=== PATIENT | female | born 1945 | race American Indian/Alaskan Native ===

== ENCOUNTER 2017-04-25 11:59 | Inpatient (IN) | payer MEDICARE ==
--- NOTE | 2017-04-25 12:14 | Emergency Department Report ---
Entered by GEORGES ROMERO, acting as scribe for VANDANA JACKSON NP. Stated Complaint: QUYEN Time Seen by Provider: 04/25/17 12:03 - HPI History of Present Illness: Pt is a 71 y.o. female who presents to ED for evaluation of 3-4 day hx of SOB with associated generalized weakness. She denies CP. Pt was recently discharged from [facility] after tx for bacterial infection at left hand (cut finger in late February /early March). She is out of her BP medications. - ROS Review of Systems: Positive for SOB and generalized weakness Positive for wound to left hand Negative for chest pain - Exam Vital Signs: Vital Signs 04/25/17 12:02 Temperature 98.1 F Pulse Rate 109 H Respiratory 22 Rate Blood Pressure 159/117 O2 Sat by Pulse 97 Oximetry Physical Exam: obese female. tachycardic L third finger tip black, finger swollen MSE screening note: Focused history and physical exam performed. Due to findings the following was ordered: Orders: EKG, sepsis workup, labs, left hand x-rays, and a CXR ED Disposition for MSE Condition: Stable This documentation as recorded by the scribe,GEORGES ROMERO,accurately reflects the service I personally performed and the decisions made by MANUEL garland TRACY M , CORA.
[2017-04-25 13:01] LABS: Eosinophils % (Auto) 1.7 % (0.0-4.3); Hematocrit 36.2 % (30.3-42.9); Hemoglobin 11.9 gm/dl (10.1-14.3); Mean Corpuscular HGB Conc 33 % (30-34); Mean Corpuscular Hemoglobin 30 pg (28-32); Mean Corpuscular Volume 90 fl (79-97); Platelet Count 246 K/mm3 (140-440); Red Blood Count 4.01 M/mm3 (3.65-5.03); Red Cell Distribution Width 12.9 % (13.2-15.2); White Blood Count 10.4 K/mm3 (4.5-11.0)
--- NOTE | 2017-04-25 13:09 | XRay Report ---
CHEST 2 VIEWS INDICATION: Fever, sepsis. COMPARISON: 04/07/2017 FINDINGS: Frontal and lateral chest radiographs now demonstrate increased bronchovascular congestion and hazy bibasilar atelectasis/small pleural effusions, left more than right. Grossly stable cardiomediastinal silhouette, though partly obscured. Intact bones. CONCLUSION: New CHF, as described. Thank you for the opportunity to participate in this patient's care.
[2017-04-25 13:12] LABS: INR 1.06 (0.87-1.13)
[2017-04-25 13:13] LABS: Partial Thromboplastin Time 29.8 Sec. (24.2-36.6)
[2017-04-25 13:19] LABS: Albumin 3.1 g/dL (3.9-5); Albumin/Globulin Ratio 0.8 %; BUN/Creatinine Ratio 25.29; Bilirubin,Total 0.4 mg/dL (0.1-1.2); C-Reactive Protein 0.5 mg/dL (0.00-1.30); Calcium 8.3 mg/dL (8.4-10.2); Total Protein 6.8 g/dL (6.3-8.2)
[2017-04-25 13:23] LABS: Erythrocyte Sedimentation Rate 59 mm/Hr (0-20)
--- NOTE | 2017-04-25 13:39 | XRay Report ---
Left hand: Third digit swelling. There is diffuse swelling of the soft tissues of the third digit from the proximal digit to the DIP joint. The very distal soft tissues appear somewhat atrophic dorsally and there is soft tissue gas contiguous to the distal phalanx. There is an apparent ulcer just distal to the PIP joint. The bones on both sides of the PIP joint demonstrate decreased mineralization but no definite destruction. The joint appears preserved. The remainder of the hand is unremarkable for any significant findings. Impression: Findings consistent with extensive soft tissue infection of the third digit with possible infection involving the bones of the PIP joint.
[2017-04-25 13:51] LABS: Bacteria,Urine 1+ /HPF (Negative); Bilirubin,Urine NEG (Negative); Blood,Urine MOD (Negative); Ketones,Urine NEG (Negative); Leukocyte Esterase,Urine TR (Negative); Mucus,Urine FEW /HPF; Nitrite,Urine NEG (Negative); Urobilinogen,Urine < 2.0 mg/dL (<2.0)
[2017-04-25 13:56] LABS: Protein,Urine >500 mg/dL (Negative)
[2017-04-25] MEDS ORDERED: LASIX IV ONE (14:20)
[2017-04-25] MEDS ORDERED: CLEOCIN 600 MG/50 mL 600 MG/50 ML BAG IV ONE (14:20)
[2017-04-25] MEDS ORDERED: BABY ASPIRIN PO ONE (14:21)
--- NOTE | 2017-04-25 14:21 | Emergency Department Report ---
ED General Adult HPI - General Chief complaint: Dyspnea/Respdistress Stated complaint: QUYEN Time Seen by Provider: 04/25/17 12:03 Source: patient, RN notes reviewed, old records reviewed Mode of arrival: Ambulatory Limitations: Physical Limitation - History of Present Illness Initial comments: This is a 71-year-old female. She is previously unknown to me. Patient has a past medical history of hypertension, diabetes, left middle finger abscess, recently admitted to this hospital, received incision and drainage. The patient presents to the ER complaining of cough, wheezing, shortness of breath, unintentional weight gain. No hematemesis or bright red blood per rectum. No chest pain. No fevers. Reports 2-3 pillow orthopnea. Reports unintentional 20 pound weight gain. Incidentally notes that her left middle finger has changed color, and is now black. -: Gradual Location: left, upper extremity Consistency: constant Improves with: rest Worsens with: movement Associated Symptoms: cough, loss of appetite, shortness of breath, weakness - Related Data Previous Rx's Medication Instructions Recorded Last Taken Type Clindamycin [Clindamycin CAP] 300 mg PO Q8H #30 cap 04/13/17 04/25/17 Rx Insulin NPH/Regular [Novolin 70/30] 8 unit SQ BID #1 vial 04/13/17 04/25/17 Rx traMADol [Ultram 50 MG tab] 50 mg PO Q6HR PRN #12 tablet 04/13/17 04/25/17 Rx Allergies Allergy/AdvReac Type Severity Reaction Status Date / Time No Known Allergies Allergy Unverified 04/07/17 12:28 ED Review of Systems ROS: Stated complaint: QUYEN Other details as noted in HPI Constitutional: malaise, weakness Eyes: denies: vision change ENT: denies: epistaxis Respiratory: shortness of breath Cardiovascular: dyspnea on exertion, edema Gastrointestinal: denies: abdominal pain Genitourinary: denies: dysuria Musculoskeletal: arthralgia, myalgia Skin: lesions Neurological: headache ED Past Medical Hx - Past Medical History Previous Medical History?: Yes Hx Hypertension: Yes Hx Diabetes: Yes Additional medical history: Left middle finger bacterial infection - Surgical History Past Surgical History?: No - Social History Smoking Status: Former Smoker Substance Use Type: Prescribed - Medications Home Medications: Home Medications Medication Instructions Recorded Confirmed Last Taken Type Clindamycin [Clindamycin CAP] 300 mg PO Q8H #30 cap 04/13/17 04/25/17 04/25/17 Rx Insulin NPH/Regular [Novolin 70/30] 8 unit SQ BID #1 vial 04/13/17 04/25/1710/11 Rx traMADol [Ultram 50 MG tab] 50 mg PO Q6HR PRN #12 tablet 04/13/17 04/25/1704/25 Rx ED Physical Exam - General Limitations: Physical Limitation General appearance: alert, in no apparent distress - Head Head exam: Present: atraumatic, normocephalic - Eye Eye exam: Present: normal appearance, EOMI. Absent: nystagmus - ENT ENT exam: Present: normal exam, normal orophraynx, mucous membranes moist, normal external ear exam - Neck Neck exam: Present: normal inspection, full ROM - Respiratory Respiratory exam: Present: wheezes, rales, rhonchi. Absent: respiratory distress - Cardiovascular Cardiovascular Exam: Present: regular rate, normal rhythm, normal heart sounds. Absent: bradycardia, tachycardia, irregular rhythm, systolic murmur, diastolic murmur, rubs, gallop - GI/Abdominal GI/Abdominal exam: Present: soft, normal bowel sounds. Absent: distended, tenderness, guarding, rebound, rigid, pulsatile mass - Extremities Exam Extremities exam: Present: tenderness, normal capillary refill, pedal edema, other (there is 2-3+ pitting edema bilateral lower extremity's. There is no palpable cord. There is negative Homans sign. 2+ pulses noted in the bilateral upper and lower extremity. Left middle finger is necrotic, blackened from the mid distal phalanx distal. No capillary refill is appreciated.). Absent: calf tenderness - Back Exam Back exam: Present: normal inspection, full ROM. Absent: tenderness, paraspinal tenderness - Neurological Exam Neurological exam: Present: alert, oriented X3, other (Extraocular movements intact. Tongue midline. No facial droop. Facial sensation intact to light touch in the V1, V2, V3 distribution bilaterally. 5 and 5 strength in 4 extremities.. Sensation is intact to light touch in 4 extremities.). Absent: motor sensory deficit - Psychiatric Psychiatric exam: Present: normal affect, normal mood - Skin Skin exam: Present: warm, dry, intact, normal color. Absent: rash ED Course Vital Signs 04/25/17 04/25/17 04/25/17 12:02 13:21 17:08 Temperature 98.1 F 98.9 F 98.9 F Pulse Rate 109 H 86 96 H Respiratory 22 16 18 Rate Blood Pressure 159/117 Blood Pressure 174/88 166/92 [Left] O2 Sat by Pulse 97 100 100 Oximetry 04/25/17 18:21 Temperature 98.4 F Pulse Rate 88 Respiratory 16 Rate Blood Pressure 159/84 Blood Pressure [Left] O2 Sat by Pulse 100 Oximetry ED Medical Decision Making - Lab Data Result diagrams: 04/25/17 15:13 04/25/17 15:13 Vital Signs 04/25/17 04/25/17 12:02 13:21 Temperature 98.1 F 98.9 F Pulse Rate 109 H 86 Respiratory 22 16 Rate Blood Pressure 159/117 Blood Pressure 174/88 [Left] O2 Sat by Pulse 97 100 Oximetry Labs 04/25/17 04/25/17 04/25/17 12:48 12:48 12:48 WBC 10.4 RBC 4.01 Hgb 11.9 Hct 36.2 MCV 90 MCH 30 MCHC 33 RDW 12.9 L Plt Count 246 Lymph % (Auto) 35.6 H [place] % (Auto) 8.3 H Eos % (Auto) 1.7 Baso % (Auto) 1.0 Lymph # 3.7 [place] # 0.9 H Eos # 0.2 Baso # 0.1 Seg Neutrophils % 53.4 Seg Neutrophils # 5.6 ESR 59 PT 13.7 INR 1.06 APTT 29.8 D-Dimer Sodium Potassium Chloride Carbon Dioxide Anion Gap BUN Creatinine Estimated GFR BUN/Creatinine Ratio Glucose Lactic Acid 1.70 Calcium Total Bilirubin AST ALT Alkaline Phosphatase Troponin T C-Reactive Protein NT-Pro-B Natriuret Pep Total Protein Albumin Albumin/Globulin Ratio Triglycerides Cholesterol LDL Cholesterol Direct HDL Cholesterol Cholesterol/HDL Ratio Urine Color Urine Turbidity Urine pH Ur Specific [place] Urine Protein Urine Glucose (UA) Urine Ketones Urine Blood Urine Nitrite Urine Bilirubin Urine Urobilinogen Ur Leukocyte Esterase Urine WBC (Auto) Urine RBC (Auto) U Epithel Cells (Auto) Urine Bacteria (Auto) Ur Transition Epith Cell Urine Mucus 04/25/17 04/25/17 04/25/17 12:48 13:34 15:13 WBC RBC Hgb Hct MCV MCH MCHC RDW Plt Count Lymph % (Auto) [place] % (Auto) Eos % (Auto) Baso % (Auto) Lymph # [place] # Eos # Baso # Seg Neutrophils % Seg Neutrophils # ESR PT INR APTT D-Dimer Sodium 140 Potassium 5.0 Chloride 101.0 Carbon Dioxide 27 Anion Gap 17 BUN 43 H Creatinine 1.7 H Estimated GFR 36 BUN/Creatinine Ratio 25.29 Glucose 104 H Lactic Acid 1.30 Calcium 8.3 L Total Bilirubin 0.40 AST 31 ALT 38 Alkaline Phosphatase 107 Troponin T 0.036 H C-Reactive Protein 0.50 NT-Pro-B Natriuret Pep 4705 H Total Protein 6.8 Albumin 3.1 L Albumin/Globulin Ratio 0.8 Triglycerides 163 H Cholesterol 176 LDL Cholesterol Direct 102 HDL Cholesterol 42 Cholesterol/HDL Ratio 4.19 Urine Color Yellow Urine Turbidity Clear Urine pH 6.0 Ur Specific [place] 1.012 Urine Protein >500 Urine Glucose (UA) 150 Urine Ketones Neg Urine Blood Mod Urine Nitrite Neg Urine Bilirubin Neg Urine Urobilinogen < 2.0 Ur Leukocyte Esterase Tr Urine WBC (Auto) 10.0 H Urine RBC (Auto) 14.0 U Epithel Cells (Auto) 1.0 Urine Bacteria (Auto) 1+ Ur Transition Epith Cell 1 Urine Mucus Few 04/25/17 04/25/17 04/25/17 15:13 15:13 15:13 WBC 9.6 RBC 4.02 Hgb 12.1 Hct 36.0 MCV 90 MCH 30 MCHC 34 RDW 13.2 Plt Count 254 Lymph % (Auto) 34.9 [place] % (Auto) 9.1 H Eos % (Auto) 1.7 Baso % (Auto) 1.0 Lymph # 3.4 [place] # 0.9 H Eos # 0.2 Baso # 0.1 Seg Neutrophils % 53.3 Seg Neutrophils # 5.1 ESR PT INR APTT D-Dimer 437.74 H Sodium 139 Potassium 4.2 Chloride 97.7 L Carbon Dioxide 26 Anion Gap 20 BUN 41 H Creatinine 1.7 H Estimated GFR 36 BUN/Creatinine Ratio 24.11 Glucose 89 Lactic Acid Calcium 8.4 Total Bilirubin AST ALT Alkaline Phosphatase Troponin T C-Reactive Protein NT-Pro-B Natriuret Pep Total Protein Albumin Albumin/Globulin Ratio Triglycerides Cholesterol LDL Cholesterol Direct HDL Cholesterol Cholesterol/HDL Ratio Urine Color Urine Turbidity Urine pH Ur Specific [place] Urine Protein Urine Glucose (UA) Urine Ketones Urine Blood Urine Nitrite Urine Bilirubin Urine Urobilinogen Ur Leukocyte Esterase Urine WBC (Auto) Urine RBC (Auto) U Epithel Cells (Auto) Urine Bacteria (Auto) Ur Transition Epith Cell Urine Mucus - EKG Data -: EKG Interpreted by Me Rate: tachycardia - EKG Data 04/25/17 15:53 sinus tachycardia, 104 bpm, normal axis, normal intervals, a troponin enlargement, poor R wave progression, not morphologically consistent with STEMI - Radiology Data Radiology results: report reviewed, image reviewed X-ray of the chest demonstrate congestive heart failure. X-ray of the left hand demonstrates soft tissue swelling, probable soft tissue infection, possible osteomyelitis - Medical Decision Making Differential diagnosis: Cardio renal syndrome, congestive heart failure, dry gangrene, osteomyelitis Assessment and plan: 71-year-old female with edema, weight gain, orthopnea, new onset renal insufficiency, clinically new onset congestive heart failure, to be admitted for further evaluation and management. Left upper extremity also demonstrates dry gangrene. Patient will have wound cultures, blood cultures, Critical care attestation.: If time is entered above; I have spent that time in minutes in the direct care of this critically ill patient, excluding procedure time. ED Disposition Clinical Impression: Cardiorenal syndrome, Necrosis of finger Disposition: DC-[id number] OP ADMIT IP TO THIS HOSP Is pt being admited?: Yes Does the pt Need Aspirin: Yes Condition: Good
--- NOTE | 2017-04-25 14:25 | Admit Criteria Form ---
Admission Criteria Documentation: HEART FAILURE Clinical Indications for Admission to Inpatient Care (Place 'X' for any and all applicable criteria): Admission is indicated by 1 or more of the following(1)(2)(3)(4)(5)(6)(7) [ ]I. Hemodynamic instability(9) [ ]II. Severe electrolyte abnormalities requiring inpatient care [ ]III. Cardiac arrhythmias of immediate concern [ ]IV. Precipitating cause for acute decompensation (eg, pneumonia, pulmonary embolism) requires inpatient care [ ]V. Acute cardiac ischemia causing or associated with failure (Also use Angina or Myocardial Infarction as appropriate) [ ]. Pulmonary edema that is very severe (eg, mechanical ventilation needed, imminent or likely, need for 100% oxygen to keep oxygen saturation above 90%) [ ]VII. Massive skin edema (anasarca) with complications (eg tissue breakdown with infection, inability to void due to edema)[A] (15) [X ]VIIl. Inpatient admission required [B]rather than observation care (See Heart Failure: Observation Care as appropriate) because of 1 or more of the following(16)(17): [ ]a) Pulmonary edema that is severe or worsening as indicated by ALL of the following: [ ]1) New need for oxygen therapy to keep oxygen saturation above 90% (or increased FiO2 need from baseline) [ ]2) Has not improved sufficiently with emergency department or observation care IV diuretics or other heart failure treatments[C] [ ]b) Altered mental status that is severe or persistent [ ]c) Increased creatinine (new on laboratory test) with reduction of more than 50% in estimated glomerular filtration rate from baseline. [ ]d) Progressively (ongoing) rising creatinine (known from past laboratory test) with reduction of more than 25% in estimated glomerular filtration rate from baseline [ ]e) Acute renal insufficiency (progressively (ongoing) rising creatinine (known from past laboratory test) with reduction of more than 25% in estimated glomerular filtration rate from baseline. [X ]f) Acute renal failure [ ]g) Acute peripheral ischemia (e.g., examination shows pulseless, cool, mottled, or cyanotic extremity) [ ]h) Oyxgen administration or respiratory treatments have been needed for over 24 hours that are performable only in acute inpatient setting [ ]i) Pulmonary artery catheter monitoring [X ]j) Other condition, treatment or monitoring requiring inpatient admission Extended stay beyond goal length of stay may be needed for(1)(14)(38)(42)(45) [ ]a) Cardiac ischemia, confirmed or suspected as precipitant (1) [ ]b) Cardiogenic shock (2)(46)(47)(48)(49) [ ]c) Acute renal failure [ ]d) Stage IV chronic kidney disease (estimated glomerular filtration rate of less than 30 mL/min/1.73m2 (0.50 mL/sec/1.73m2), and not previously on chronic dialysis [ ]e) Respiratory failure (eg, need for noninvasive or invasive ventilation) ( 50) [ ]f) Concomitant pneumonia or significant electrolyte abnormality (eg, severe hyponatremia) (51) [ ]g) Newly diagnosed (new onset) atrial fibrillation (52)(53) The original [facility] [employer] content created by [facility] [employer] has been revised. The portions of the content which have been revised are identified through the use of italic text or in bold, and [facility] has neither reviewed nor approved the modified material. All other unmodified content is copyright [facility] [employer]. Please see references footnoted in the original [facility] [employer] edition 2017 Admission Criteria Met: Yes
--- NOTE | 2017-04-25 14:31 | History and Physical Report ---
History of Present Illness Chief complaint: my legs keep swelling up and its hard for me to breathe History of present illness: 71 YO Female with HTN, DM, Obesity, L 3rd digit Cellulitis presents to ED for evaluation. Pt states that she has been experiencing leg swelling and shortness of breath for the past week, with worsening symptoms over the past 2 days. Pt acknowledges Orthopnea, PND, as well as 20 lbs unintentional weight gain and feeling bloated. Pt denies fever, chills, palpitations, NVD, Syncope, vertigo, BRBPR, productive cough, or skin rashes. Pt also states that her left middle finger has changed color, and is now black. Past History Past Medical History: diabetes, hypertension, other (obesity) Past Surgical History: Other (I&D of left 3rd finger,) Social history: . denies: smoking, alcohol abuse, prescription drug abuse, IV drug use Family history: diabetes, hypertension Medications and Allergies Allergies Allergy/AdvReac Type Severity Reaction Status Date / Time No Known Allergies Allergy Unverified 04/07/17 12:28 Home Medications Medication Instructions Recorded Confirmed Last Taken Type Clindamycin [Clindamycin CAP] 300 mg PO Q8H #30 cap 04/13/17 04/25/17 04/25/17 Rx Insulin NPH/Regular [Novolin 70/30] 8 unit SQ BID #1 vial 04/13/17 04/25/1710/11 Rx traMADol [Ultram 50 MG tab] 50 mg PO Q6HR PRN #12 tablet 04/13/17 04/25/1704/25 Rx Active Meds: Active Medications Clindamycin HCl (Cleocin 600 Mg/50 Ml) 600 mg in 50 mls @ 100 mls/hr IV ONCE ONE Stop: 04/25/17 14:49 Review of Systems All systems: negative Constitutional: weight gain Ears, nose, mouth and throat: no ear pain Breasts: no swelling Cardiovascular: orthopnea, dyspnea on exertion, paroxysmal nocturnal dyspnea, leg edema, no chest pain Respiratory: shortness of breath, no cough Gastrointestinal: no abdominal pain Genitourinary Female: no urinary frequency Rectal: no pain Musculoskeletal: no neck stiffness Integumentary: no rash Neurological: no paralysis Psychiatric: no anxiety Endocrine: no cold intolerance Hematologic/Lymphatic: no easy bruising Allergic/Immunologic: no urticaria Exam - Constitutional Vitals: Temp Pulse Resp BP Pulse Ox 98.9 F 86 16 174/88 100 04/25/17 13:21 04/25/17 13:21 04/25/17 13:21 04/25/17 13:21 04/25/17 13:21 General appearance: Present: mild distress - EENT Eyes: Present: PERRL ENT: hearing intact, clear oral mucosa - Neck Neck: Present: supple, normal ROM - Respiratory Respiratory: bilateral: diminished - Cardiovascular Heart Sounds: Present: S1 & S2. Absent: rub, click - Extremities Extremities: pulses symmetrical Extremity abnormal: edema Peripheral Pulses: within normal limits - Abdominal General gastrointestinal: Present: soft, non-tender, non-distended, normal bowel sounds Female genitourinary: Present: normal - Integumentary Integumentary: Present: clear, warm, dry - Musculoskeletal Musculoskeletal: gait normal, strength equal bilaterally - Psychiatric Psychiatric: appropriate mood/affect, intact judgment & insight - Neurologic Neurologic: CNII-XII intact, moves all extremities Results - Labs CBC & Chem 7: 04/25/17 15:13 04/25/17 15:13 Labs: Abnormal lab results 04/25/17 04/25/17 04/25/17 Range/Units 12:48 12:48 13:34 RDW 12.9 L (13.2-15.2) % Lymph % (Auto) 35.6 H (13.4-35.0) % Jones % (Auto) 8.3 H (0.0-7.3) % Jones # 0.9 H (0.0-0.8) K/mm3 BUN 43 H (7-17) mg/dL Creatinine 1.7 H (0.7-1.2) mg/dL Glucose 104 H (65-100) mg/dL Calcium 8.3 L (8.4-10.2) mg/dL Troponin T 0.036 H (0.00-0.029) ng/mL NT-Pro-B Natriuret Pep 4705 H (0-900) pg/mL Albumin 3.1 L (3.9-5) g/dL Triglycerides 163 H (2-149) mg/dL Urine WBC (Auto) 10.0 H (0.0-6.0) /HPF Assessment and Plan - Patient Problems (1) CHF (congestive heart failure) Current Visit: Yes Status: Acute Qualifiers: Congestive heart failure type: systolic Congestive heart failure chronicity : C Plan to address problem: CHF Protocol: Fluid restriction, Cardiology consulted, echo, supportive care, monitor uop q shift, (2) Hypertensive urgency Current Visit: Yes Status: Acute Plan to address problem: Monitor bp q shift, resume home medication, Target systolic overnight between 165-180. (3) ARF (acute renal failure) Current Visit: Yes Status: Acute Qualifiers: Acute renal failure type: A Plan to address problem: monitor uop q shift, urine electrolytes, (4) Cellulitis of finger of left hand Current Visit: No Status: Acute Plan to address problem: Ortho consulted, supportive care, (5) DVT prophylaxis Current Visit: Yes Status: Acute
[2017-04-25] MEDS ORDERED: PROVENTIL IH PRN (14:48)
[2017-04-25] MEDS ORDERED: ZOFRAN IV PRN (14:48)
[2017-04-25] MEDS ORDERED: TYLENOL PO PRN (14:48)
[2017-04-25] MEDS ORDERED: SODIUM CHLORIDE FLUSH SYRINGE 10 ML IV PRN (14:52)
[2017-04-25] MEDS ORDERED: ULTRAM PO PRN (14:54)
[2017-04-25 15:24] LABS: Eosinophils % (Auto) 1.7 % (0.0-4.3); Hemoglobin 12.1 gm/dl (10.1-14.3); Mean Corpuscular HGB Conc 34 % (30-34); Mean Corpuscular Hemoglobin 30 pg (28-32); Mean Corpuscular Volume 90 fl (79-97); Platelet Count 254 K/mm3 (140-440); Red Blood Count 4.02 M/mm3 (3.65-5.03); Red Cell Distribution Width 13.2 % (13.2-15.2); White Blood Count 9.6 K/mm3 (4.5-11.0)
[2017-04-25 15:45] LABS: BUN/Creatinine Ratio 24.11; Calcium 8.4 mg/dL (8.4-10.2); Chloride 97.7 mmol/L (98-107); Potassium 4.2 mmol/L (3.6-5.0)
[2017-04-25] MEDS ORDERED: ZOSYN/NS 4.5GM/100ML 4.5 GM/100 ML VIAL IV ONE (15:55)
[2017-04-26] MEDS ORDERED: APRESOLINE IV PRN (01:28)
[2017-04-26] MEDS ORDERED: APRESOLINE IV SCH (02:00)
--- NOTE | 2017-04-26 08:34 | Nuclear Medicine Report ---
LUNG SCAN, VENTILATION AND PERFUSION: History: Dyspnea. Technique: 5mci of Tc99m MAA was infused for the perfusion images. 15mci XE 133 gas was inhaled for the ventilatory images. Correlation is made with a chest x-ray dated 04/25/17 which demonstrated mild CHF. Findings: Inhalation of Xenon gas demonstrates a normal distribution of the activity throughout both lungs. The wash out phases show no focal retention of activity. After injection of Technetium 99m macroaggregated albumin gamma camera imaging of the lungs in multiple projections demonstrates normal pulmonary contours with a homogeneous distribution of activity. No focal areas of perfusion deficiency are identified. IMPRESSION: Low probability for pulmonary embolus.
--- NOTE | 2017-04-26 10:23 | Consultation ---
History of Present Illness Consult date: 04/26/17 Consult reason: congestive heart failure History of present illness: This is a 71yr old woman with multiple medical problems. She reports a remote history of coronary artery disease with PCI >10yrs ago. She also has Diabetes mellitus, Hypertension noncompliant with medications. She came to this hospital with complaints of shortness of breath and coughs over 4 days. She had a systolic blood pressure as high as 178 while in the ED. She denies chest pain. A chest x-ray reports congestive heart failure. A recent echocardiogram reports a normal LV systolic function, EF 50-55%. Lab values shows a proBNP >4700 consistent with CHF with a preserved ejection fraction. Cardiac consultation requested. Noted with necrotic tissue and discoloration of her left third finger. Patient reports she was recently discharged from this hospital after incision and drainage of abscess left third finger. Past History Social history: denies: Family history: diabetes, hypertension Medications and Allergies Allergies Allergy/AdvReac Type Severity Reaction Status Date / Time No Known Allergies Allergy Unverified 04/07/17 12:28 Home Medications Medication Instructions Recorded Confirmed Last Taken Type Clindamycin [Clindamycin CAP] 300 mg PO Q8H #30 cap 04/13/17 04/25/17 04/25/17 Rx Insulin NPH/Regular [Novolin 70/30] 8 unit SQ BID #1 vial 04/13/17 04/25/1710/11 Rx traMADol [Ultram 50 MG tab] 50 mg PO Q6HR PRN #12 tablet 04/13/17 04/25/1704/25 Rx Active Meds: Active Medications Acetaminophen (Tylenol) 650 mg PO Q4H PRN PRN Reason: Pain MILD(1-3)/Fever >100.5/[place] Albuterol (Proventil) 2.5 mg IH Q4HRT PRN PRN Reason: Shortness Of Breath Hydralazine HCl (Apresoline) 10 mg IV Q4H PRN PRN Reason: Hypertension Last Admin: 04/26/17 01:53 Dose: 10 mg Hydrochlorothiazide (Hctz) 12.5 mg PO QDAY [facility] Insulin Human Isoph/Insulin Regular (Novolin 70/30) 8 unit SUB-Q BIDDIAB [facility] Last Admin: 04/26/17 09:32 Dose: Not Given Ondansetron HCl (Zofran) 4 mg IV Q8H PRN PRN Reason: N/V unrelieved by Reglan Sodium Chloride (Sodium Chloride Flush Syringe 10 Ml) 10 ml IV PRN PRN PRN Reason: LINE FLUSH Tramadol HCl (Ultram) 50 mg PO Q6H PRN PRN Reason: Pain Physical Examination Vital Signs Temp Pulse Resp BP Pulse Ox 98.1 F 109 H 22 159/117 97 04/25/17 12:02 04/25/17 12:02 04/25/17 12:02 04/25/17 12:02 04/25/17 12:02 General appearance: no acute distress HEENT: Positive: PERRL Neck: Positive: trachea midline Cardiac: Positive: Reg Rate and Rhythm Neuro: Positive: Grossly Intact Results 04/25/17 15:13 04/25/17 15:13 CBC 04/25/17 Range/Units 15:13 WBC 9.6 (4.5-11.0) K/mm3 RBC 4.02 (3.65-5.03) M/mm3 Hgb 12.1 (10.1-14.3) gm/dl Hct 36.0 (30.3-42.9) % Plt Count 254 (140-440) K/mm3 Lymph # 3.4 (1.2-5.4) K/mm3 [place] # 0.9 H (0.0-0.8) K/mm3 Eos # 0.2 (0.0-0.4) K/mm3 Baso # 0.1 (0.0-0.1) K/mm3 Comprehensive Metabolic Panel 04/25/17 Range/Units 15:13 Sodium 139 (137-145) mmol/L Potassium 4.2 (3.6-5.0) mmol/L Chloride 97.7 L (98-107) mmol/L Carbon Dioxide 26 (22-30) mmol/L BUN 41 H (7-17) mg/dL Creatinine 1.7 H (0.7-1.2) mg/dL Glucose 89 (65-100) mg/dL Calcium 8.4 (8.4-10.2) mg/dL Assessment and Plan CHF, diastolic EF 50-55% on echo 03/2017 Hypertension -uncontrolled Elevated D-dimer low probability for PE on V/Q scan Acute renal failure Diabetes mellitus Dry Gangrene left 3rd finger Hx of CAD per pt
[2017-04-26] MEDS: HCTZ PO SCH (10:37)
[2017-04-26] MEDS: APRESOLINE PO SCH ×3 (12:52→21:08)
[2017-04-26] MEDS: ISORDIL TITRADOSE PO SCH ×3 (12:53→21:09)
[2017-04-26] MEDS: LASIX PO SCH ×2 (12:53→17:21)
--- NOTE | 2017-04-26 14:29 | Anesthesia Consultation ---
Anesthesia Consult and Med Hx Date of service: 04/26/17 - Airway Anesthetic Teeth Evaluation: Poor (missing teeth on right side) ROM Head & Neck: Adequate Mental/Hyoid Distance: Adequate Mallampati Class: Class II Intubation Access Assessment: Probably Good - Pulmonary Exam CTA: Yes - Cardiac Exam Cardiac Exam: RRR - Pre-Operative Health Status ASA Pre-Surgery Classification: ASA3 Proposed Anesthetic Plan: General - Pulmonary Hx Smoking: Yes (quit 30 years ago) Hx Respiratory Symptoms: Yes (history of bronchitis) - Cardiovascular System Hx Hypertension: Yes - Endocrine Hx Non-Insulin Dependent Diabetes: Yes - Other Systems Hx Substance Use: Yes (marijuana "every now and then") - Additional Comments Anesthesia Medical History Comments: CHF with EF 50-55%. Admit note says SOB, PND, orthopnea and leg swelling.
--- NOTE | 2017-04-26 16:28 | Progress Note ---
Assessment and Plan Assessment and plan: Acute on chronic diastolic CHF exacerbation - Patient's previous echo that was done a month ago showed diastolic dysfunction with preserved ejection fraction - Patient is monitored according to CHF protocol NSTEMI - Cardiology consult appreciated, they're going to do MPI tomorrow Necrosis of the left middle finger - Patient was admitted previously and she was monitored for cellulitis, drainage of abscess from the left middle finger was done by orthopedics and discharged. - Currently there is necrosis of the left middle finger which may need amputation and orthopedics consult was placed. - WBC count is within normal limits and patient didn't have any fever and I don' t think she has cellulitis this time - X-ray of the hand is significant for osteomyelitis and ID consult is placed. Diabetes mellitus type 2 -Continue home dose insulin -Sliding scale insulin coverage Acute kidney injury -Likely from cardiorenal syndrome, will follow BMP after managing the heart failure DVT prophylaxis -On heparin Disposition - Continue inpatient care History Interval history: Patient was seen and evaluated this morning, patient denied pain from her finger. Patient denied fever or chills. She is complaining shortness of breath and bilateral leg swelling. Hospitalist Physical - Physical exam Narrative exam: Not in cardiopulmonary distress. The patient appeared well nourished and normally developed. Vital signs as documented. Head exam is unremarkable. No scleral icterus . Neck is without jugular venous distension, thyromegaly, or carotid bruits. Lungs significant for bibasilar rales. Cardiac exam reveals regular rate and Rhythm. First and second heart sounds normal. No murmurs, rubs or gallops. Abdominal exam reveals normal bowel sounds, no masses, no organomegaly and no aortic enlargement. Extremities significant for necrosis of the left middle finger. Bilateral +2 pedal and pretibial edema. 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 No focal weakness. - Constitutional Vitals: Temp Pulse Resp BP Pulse Ox 97.4 F L 94 H 18 167/98 100 04/26/17 12:06 04/26/17 12:06 04/26/17 12:06 04/26/17 12:04/26/17 12:38 General appearance: Present: no acute distress Results - Labs CBC & Chem 7: 04/25/17 15:13 04/25/17 15:13 Labs: Laboratory Last Values WBC 9.6 K/mm3 (4.5-11.0) 04/25/17 15:13 RBC 4.02 M/mm3 (3.65-5.03) 04/25/17 15:13 Hgb 12.1 gm/dl (10.1-14.3) 04/25/17 15:13 Hct 36.0 % (30.3-42.9) 04/25/17 15:13 MCV 90 fl (79-97) 04/25/17 15:13 MCH 30 pg (28-32) 04/25/17 15:13 MCHC 34 % (30-34) 04/25/17 15:13 RDW 13.2 % (13.2-15.2) 04/25/17 15:13 Plt Count 254 K/mm3 (140-440) 04/25/17 15:13 Lymph % (Auto) 34.9 % (13.4-35.0) 04/25/17 15:13 [place] % (Auto) 9.1 % (0.0-7.3) H 04/25/17 15:13 Eos % (Auto) 1.7 % (0.0-4.3) 04/25/17 15:13 Baso % (Auto) 1.0 % (0.0-1.8) 04/25/17 15:13 Lymph # 3.4 K/mm3 (1.2-5.4) 04/25/17 15:13 [place] # 0.9 K/mm3 (0.0-0.8) H 04/25/17 15:13 Eos # 0.2 K/mm3 (0.0-0.4) 04/25/17 15:13 Baso # 0.1 K/mm3 (0.0-0.1) 04/25/17 15:13 Seg Neutrophils % 53.3 % (40.0-70.0) 04/25/17 15:13 Seg Neutrophils # 5.1 K/mm3 (1.8-7.7) 04/25/17 15:13 ESR 59 mm/Hr (0-20) 04/25/17 12:48 PT 13.7 Sec. (12.2-14.9) 04/25/17 12:48 INR 1.06 (0.87-1.13) 04/25/17 12:48 APTT 29.8 Sec. (24.2-36.6) 04/25/17 12:48 D-Dimer 437.74 ng/mlDDU (0-234) H 04/25/17 15:13 Sodium 139 mmol/L (137-145) 04/25/17 15:13 Potassium 4.2 mmol/L (3.6-5.0) 04/25/17 15:13 Chloride 97.7 mmol/L (98-107) L 04/25/17 15:13 Carbon Dioxide 26 mmol/L (22-30) 04/25/17 15:13 Anion Gap 20 mmol/L 04/25/17 15:13 BUN 41 mg/dL (7-17) H 04/25/17 15:13 Creatinine 1.7 mg/dL (0.7-1.2) H 04/25/17 15:13 Estimated GFR 36 ml/min 04/25/17 15:13 BUN/Creatinine Ratio 24.11 % 04/25/17 15:13 Glucose 89 mg/dL (65-100) 04/25/17 15:13 Lactic Acid 1.30 mmol/L (0.7-2.0) 04/25/17 15:13 Calcium 8.4 mg/dL (8.4-10.2) 04/25/17 15:13 Total Bilirubin 0.40 mg/dL (0.1-1.2) 04/25/17 12:48 AST 31 units/L (5-40) 04/25/17 12:48 ALT 38 units/L (7-56) 04/25/17 12:48 Alkaline Phosphatase 107 units/L (35-129) 04/25/17 12:48 Troponin T 0.035 ng/mL (0.00-0.029) H 04/25/17 20:39 C-Reactive Protein 0.50 mg/dL (0.00-1.30) 04/25/17 12:48 NT-Pro-B Natriuret Pep 4705 pg/mL (0-900) H 04/25/17 12:48 Total Protein 6.8 g/dL (6.3-8.2) 04/25/17 12:48 Albumin 3.1 g/dL (3.9-5) L 04/25/17 12:48 Albumin/Globulin Ratio 0.8 % 04/25/17 12:48 Triglycerides 163 mg/dL (2-149) H 04/25/17 12:48 Cholesterol 176 mg/dL (50-199) 04/25/17 12:48 LDL Cholesterol Direct 102 mg/dL (50-130) 04/25/17 12:48 HDL Cholesterol 42 mg/dL (40-59) 04/25/17 12:48 Cholesterol/HDL Ratio 4.19 % 04/25/17 12:48 TSH 1.950 mlU/mL (0.270-4.200) 04/25/17 15:13 Free T4 1.38 ng/dL (0.76-1.46) 04/25/17 15:13 Urine Color Yellow (Yellow) 04/25/17 13:34 Urine Turbidity Clear (Clear) 04/25/17 13:34 Urine pH 6.0 (5.0-7.0) 04/25/17 13:34 Ur Specific [place] 1.012 (1.003-1.030) 04/25/17 13:34 Urine Protein >500 mg/dL (Negative) 04/25/17 13:34 Urine Glucose (UA) 150 mg/dL (Negative) 04/25/17 13:34 Urine Ketones Neg mg/dL (Negative) 04/25/17 13:34 Urine Blood Mod (Negative) 04/25/17 13:34 Urine Nitrite Neg (Negative) 04/25/17 13:34 Urine Bilirubin Neg (Negative) 04/25/17 13:34 Urine Urobilinogen < 2.0 mg/dL (<2.0) 04/25/17 13:34 Ur Leukocyte Esterase Tr (Negative) 04/25/17 13:34 Urine WBC (Auto) 10.0 /HPF (0.0-6.0) H 04/25/17 13:34 Urine RBC (Auto) 14.0 /HPF (0.0-6.0) 04/25/17 13:34 U Epithel Cells (Auto) 1.0 /HPF (0-13.0) 04/25/17 13:34 Urine Bacteria (Auto) 1+ /HPF (Negative) 04/25/17 13:34 Ur Transition Epith Cell 1 /HPF 04/25/17 13:34 Urine Mucus Few /HPF 04/25/17 13:34 Urine Creatinine 76.7 mg/dL (0.1-20.0) H 04/25/17 13:34 Urine Sodium 99 mEq/L 04/25/17 13:34 - Imaging and Cardiology Chest x-ray: image reviewed (significant for CHF) Imaging and Cardiology: X-ray of the left hand Findings consistent with extensive soft tissue infection of the third digit with possible infection involving the bones of the PIP joint.
[2017-04-26] MEDS: NORVASC PO SCH (17:21)
--- NOTE | 2017-04-26 18:28 | Consultation ---
History of Present Illness - HPI Consult date: 04/26/17 Consult reason: other History of present illness: 71 y/o female well known to me from previous admission for abscess which I incised and drained, developed necrosis of fingertip .... Past History Past Medical History: diabetes, hypertension, other (obesity) Past Surgical History: Other (I&D of left 3rd finger,) Social history: denies: Family history: diabetes, hypertension Medications and Allergies Allergies Allergy/AdvReac Type Severity Reaction Status Date / Time No Known Allergies Allergy Unverified 04/07/17 12:28 Home Medications Medication Instructions Recorded Confirmed Last Taken Type Clindamycin [Clindamycin CAP] 300 mg PO Q8H #30 cap 04/13/17 04/25/17 04/25/17 Rx Insulin NPH/Regular [Novolin 70/30] 8 unit SQ BID #1 vial 04/13/17 04/25/1710/11 Rx traMADol [Ultram 50 MG tab] 50 mg PO Q6HR PRN #12 tablet 04/13/17 04/25/1704/25 Rx Active Meds: Active Medications Acetaminophen (Tylenol) 650 mg PO Q4H PRN PRN Reason: Pain MILD(1-3)/Fever >100.5/[place] Albuterol (Proventil) 2.5 mg IH Q4HRT PRN PRN Reason: Shortness Of Breath Amlodipine Besylate (Norvasc) 10 mg PO QDAY [facility] Last Admin: 04/26/17 17:21 Dose: 10 mg Furosemide (Lasix) 40 mg PO 0600,1800 [facility] Last Admin: 04/26/17 17:21 Dose: 40 mg Heparin Sodium (Porcine) (Heparin) 5,000 unit SUB-Q Q8HR [facility] Hydralazine HCl (Apresoline) 10 mg IV Q4H PRN PRN Reason: Hypertension Last Admin: 04/26/17 01:53 Dose: 10 mg Hydralazine HCl (Apresoline) 25 mg PO Q8HR [facility] Last Admin: 04/26/17 14:00 Dose: Not Given Hydrochlorothiazide (Hctz) 12.5 mg PO QDAY [facility] Last Admin: 04/26/17 10:37 Dose: 12.5 mg Insulin Human Isoph/Insulin Regular (Novolin 70/30) 8 unit SUB-Q BIDDIAB [facility] Last Admin: 04/26/17 09:32 Dose: Not Given Isosorbide Dinitrate (Isordil Titradose) 20 mg PO Q8HR [facility] Last Admin: 04/26/17 14:00 Dose: Not Given Ondansetron HCl (Zofran) 4 mg IV Q8H PRN PRN Reason: N/V unrelieved by Reglan Sodium Chloride (Sodium Chloride Flush Syringe 10 Ml) 10 ml IV PRN PRN PRN Reason: LINE FLUSH Tramadol HCl (Ultram) 50 mg PO Q6H PRN PRN Reason: Pain Physical Examination - Physical exam Narrative exam: Dry gangreen left 3rd finger recommend - observation for now since there's no indication of sepsis, i.e..fever,inc white count or drainage....will amputate once wound fully declares
[2017-04-26] MEDS: HEPARIN SUB-Q SCH (21:09)
[2017-04-27 06:04] LABS: Basophils % (Auto) 1.3 % (0.0-1.8); Eosinophils % (Auto) 3.3 % (0.0-4.3); Hematocrit 31.8 % (30.3-42.9); Hemoglobin 10.6 gm/dl (10.1-14.3); Mean Corpuscular HGB Conc 33 % (30-34); Mean Corpuscular Hemoglobin 30 pg (28-32); Mean Corpuscular Volume 89 fl (79-97); Platelet Count 202 K/mm3 (140-440); Red Blood Count 3.57 M/mm3 (3.65-5.03); Red Cell Distribution Width 13.1 % (13.2-15.2); White Blood Count 8.2 K/mm3 (4.5-11.0)
[2017-04-27 06:22] LABS: BUN/Creatinine Ratio 23.88; Calcium 7.9 mg/dL (8.4-10.2); Potassium 4.4 mmol/L (3.6-5.0)
[2017-04-27] MEDS: ISORDIL TITRADOSE PO SCH ×3 (06:39→21:58)
[2017-04-27] MEDS: APRESOLINE PO SCH ×3 (06:39→21:58)
[2017-04-27] MEDS: LASIX PO SCH ×2 (06:40→17:15)
[2017-04-27] MEDS: HEPARIN SUB-Q SCH ×3 (06:40→21:59)
--- NOTE | 2017-04-27 07:46 | Consultation ---
History of Present Illness - Reason for Consult Consult date: 04/27/17 0steomyelitis of the left middle finger Requesting physician: SIMON RITTER - History of Present Illness is a 71-year-old woman with a history of hypertension and obesity who presents with symptoms of congestive heart failure, but is also found to have swelling of the left third finger. She says she accidentally cut her finger with a knife with cutting a watermelon. A left hand xray showed soft tissue swelling of the 3rd finger with possible bony PIP involvement. Wound culture shows a predominance of Gram positive cocci in pairs. She is prescribed Clindamycin. ID consultation is requested for further treatment recommendations. Past History Past Medical History: diabetes, hypertension, other (obesity) Past Surgical History: Other (I&D of left 3rd finger,) Social history: denies: Family history: diabetes, hypertension Medications and Allergies Allergies Allergy/AdvReac Type Severity Reaction Status Date / Time No Known Allergies Allergy Unverified 04/07/17 12:28 Home Medications Medication Instructions Recorded Confirmed Last Taken Type Clindamycin [Clindamycin CAP] 300 mg PO Q8H #30 cap 04/13/17 04/25/17 04/25/17 Rx Insulin NPH/Regular [Novolin 70/30] 8 unit SQ BID #1 vial 04/13/17 04/25/1710/11 Rx traMADol [Ultram 50 MG tab] 50 mg PO Q6HR PRN #12 tablet 04/13/17 04/25/1704/25 Rx Active Meds: Active Medications Acetaminophen (Tylenol) 650 mg PO Q4H PRN PRN Reason: Pain MILD(1-3)/Fever >100.5/[place] Albuterol (Proventil) 2.5 mg IH Q4HRT PRN PRN Reason: Shortness Of Breath Amlodipine Besylate (Norvasc) 10 mg PO QDAY [facility] Last Admin: 04/26/17 17:21 Dose: 10 mg Furosemide (Lasix) 40 mg PO 0600,1800 [facility] Last Admin: 04/27/17 06:40 Dose: 40 mg Heparin Sodium (Porcine) (Heparin) 5,000 unit SUB-Q Q8HR [facility] Last Admin: 04/27/17 06:40 Dose: 5,000 unit Hydralazine HCl (Apresoline) 10 mg IV Q4H PRN PRN Reason: Hypertension Last Admin: 04/26/17 01:53 Dose: 10 mg Hydralazine HCl (Apresoline) 25 mg PO Q8HR [facility] Last Admin: 04/27/17 06:39 Dose: 25 mg Hydrochlorothiazide (Hctz) 12.5 mg PO QDAY [facility] Last Admin: 04/26/17 10:37 Dose: 12.5 mg Insulin Human Isoph/Insulin Regular (Novolin 70/30) 8 unit SUB-Q BIDDIAB [facility] Last Admin: 04/26/17 18:52 Dose: Not Given Isosorbide Dinitrate (Isordil Titradose) 20 mg PO Q8HR [facility] Last Admin: 04/27/17 06:39 Dose: 20 mg Ondansetron HCl (Zofran) 4 mg IV Q8H PRN PRN Reason: N/V unrelieved by Reglan Sodium Chloride (Sodium Chloride Flush Syringe 10 Ml) 10 ml IV PRN PRN PRN Reason: LINE FLUSH Tramadol HCl (Ultram) 50 mg PO Q6H PRN PRN Reason: Pain Review of Systems All systems: negative Constitutional: no fever, no chills Cardiovascular: orthopnea, shortness of breath Gastrointestinal: no nausea, no vomiting, no diarrhea Musculoskeletal: redness of joints (left 3rd finger) Integumentary: darkening of skin (at affected finger), no rash Physical Examination - Constitutional Vitals: Vital Signs Temp Pulse Resp BP Pulse Ox 98.3 F 87 20 148/88 98 04/27/17 06:09 04/27/17 06:39 04/27/17 06:09 04/27/17 06:39 04/27/17 06:09 Temperature -Last 24 Hours Temperature 98.3 F Temperature 98.1 F Temperature 0 F Temperature 97.8 F Temperature 98.8 F Temperature 97.4 F General appearance: Present: no acute distress, well-nourished - Respiratory Respiratory effort: normal Respiratory: bilateral: CTA, negative: rales, rhonchi - Cardiovascular Rhythm: regular Heart Sounds: Present: S1 & S2 - Extremities Extremity abnormal: edema (mild swelling at the left 3rd PIP with distal gangrene of the finger and progressive ischemic changes proximally, no fluctuance, limited sensation) Results - Labs CBC & Chem 7: 04/27/17 04:44 08/03/17 04:44 Labs: Abnormal lab results 04/26/17 04/26/17 04/27/17 Range/Units 17:23 20:42 04:44 RBC 3.57 L (3.65-5.03) M/mm3 RDW 13.1 L (13.2-15.2) % Lymph % (Auto) 42.9 H (13.4-35.0) % [place] % (Auto) 7.8 H (0.0-7.3) % BUN (7-17) mg/dL Creatinine (0.7-1.2) mg/dL Glucose (65-100) mg/dL POC Glucose 263 H 213 H (70-105) Calcium (8.4-10.2) mg/dL 04/27/17 Range/Units 04:44 RBC (3.65-5.03) M/mm3 RDW (13.2-15.2) % Lymph % (Auto) (13.4-35.0) % [place] % (Auto) (0.0-7.3) % BUN 43 H (7-17) mg/dL Creatinine 1.8 H (0.7-1.2) mg/dL Glucose 204 H (65-100) mg/dL POC Glucose (70-105) Calcium 7.9 L (8.4-10.2) mg/dL Microbiology 04/25/17 16:39 Peripheral/Venous Blood Culture - Preliminary NO GROWTH AFTER 24 HOURS 04/25/17 16:39 Peripheral/Venous Blood Culture - Preliminary NO GROWTH AFTER 24 HOURS 04/25/17 15:20 Finger - Left Middle Wound Culture - Preliminary - Imaging and Cardiology Chest x-ray: report reviewed (new CHF) Assessment and Plan - Patient Problems (1) Gangrene of finger Current Visit: Yes Status: Acute Plan to address problem: 1. Surgical intervention is needed rather than systemic antibiotics. 2. If surgery is deferred for a prolonged period, would continue oral Clindamycin pending definitive surgical plan. 3. I will see the patient on an as-needed basis.
[2017-04-27] MEDS: HCTZ PO SCH (09:40)
[2017-04-27] MEDS: NORVASC PO SCH (09:40)
--- NOTE | 2017-04-27 10:03 | Progress Note ---
Assessment and Plan CHF, diastolic EF 50-55% on echo 03/2017 Hypertension Elevated D-dimer low probability for PE on V/Q scan Acute renal failure Diabetes mellitus Necrotic left 3rd finger Recommendations: Diuresis and afterload reduction for heart failure with a preserved ejection fraction. Lexiscan in am. Subjective Date of service: 04/27/17 Interval history: Patient lying in bed in prone position. She denies shortness of breath. Objective Vital Signs Temp Pulse Resp BP Pulse Ox 04/27/17 08:55 98.0 F 95 H 18 124/64 95 04/27/17 08:06 98 04/27/17 06:39 87 148/88 04/27/17 06:09 98.3 F 87 20 148/88 98 04/27/17 05:58 90 04/26/17 23:51 98.1 F 90 19 132/60 96 04/26/17 22:00 97 H 98 04/26/17 21:09 97 H 160/90 04/26/17 21:08 97 H 160/90 04/26/17 20:44 22 04/26/17 19:34 0 F L 0 L 0 L 0/0 0 L 04/26/17 19:30 97.8 F 97 H 21 160/90 98 04/26/17 18:17 98.8 F 115 H 18 181/97 98 04/26/17 12:38 100 04/26/17 12:06 97.4 F L 94 H 18 167/98 97 04/26/17 11:49 92 H - Physical Examination General: No Apparent Distress HEENT: Positive: PERRL Neck: Positive: trachea midline Cardiac: Positive: Reg Rate and Rhythm Lungs: Positive: Decreased Breath Sounds Neuro: Positive: Grossly Intact - Labs and Meds CBC 04/27/17 Range/Units 04:44 WBC 8.2 (4.5-11.0) K/mm3 RBC 3.57 L (3.65-5.03) M/mm3 Hgb 10.6 (10.1-14.3) gm/dl Hct 31.8 (30.3-42.9) % Plt Count 202 (140-440) K/mm3 Lymph # 3.5 (1.2-5.4) K/mm3 [place] # 0.6 (0.0-0.8) K/mm3 Eos # 0.3 (0.0-0.4) K/mm3 Baso # 0.1 (0.0-0.1) K/mm3 Comprehensive Metabolic Panel 04/27/17 Range/Units 04:44 Sodium 138 (137-145) mmol/L Potassium 4.4 (3.6-5.0) mmol/L Chloride 101.0 (98-107) mmol/L Carbon Dioxide 24 (22-30) mmol/L BUN 43 H (7-17) mg/dL Creatinine 1.8 H (0.7-1.2) mg/dL Glucose 204 H (65-100) mg/dL Calcium 7.9 L (8.4-10.2) mg/dL
--- NOTE | 2017-04-27 16:43 | Progress Note ---
Assessment and Plan Assessment and plan: Acute on chronic diastolic CHF exacerbation - Patient's previous echo that was done a month ago showed diastolic dysfunction with preserved ejection fraction - Patient is monitored according to CHF protocol NSTEMI - Cardiology consult appreciated, they're going to do MPI tomorrow Necrosis of the left middle finger - Patient was admitted previously and she was monitored for cellulitis, drainage of abscess from the left middle finger was done by Dr Mcwilliams and discharged. - Currently there is necrosis of the left middle finger and Dr Mcwilliams was consult recommended to do amputation as an O/P - WBC count is within normal limits and patient didn't have any fever and I don' t think she has cellulitis this time - ID was consulted and recommended amputation of the finger and if not done patient can be discharged with clindamycin. Diabetes mellitus type 2 -Continue home dose insulin -Sliding scale insulin coverage Acute kidney injury -Likely from cardiorenal syndrome DVT prophylaxis -On heparin Disposition - Continue inpatient care History Interval history: Patient was seen and evaluated this morning, patient denied pain from her finger. Patient denied fever or chills. SOB leg swelling subsided. Hospitalist Physical - Physical exam Narrative exam: Not in cardiopulmonary distress. The patient appeared well nourished and normally developed. Vital signs as documented. Head exam is unremarkable. No scleral icterus . Neck is without jugular venous distension, thyromegaly, or carotid bruits. Lungs significant for bibasilar rales. Cardiac exam reveals regular rate and Rhythm. First and second heart sounds normal. No murmurs, rubs or gallops. Abdominal exam reveals normal bowel sounds, no masses, no organomegaly and no aortic enlargement. Extremities significant for necrosis of the left middle finger. Edema subsided. DATABASE DESIGNER: Alert and oriented 3. No focal weakness. - Constitutional Vitals: Temp Pulse Resp BP Pulse Ox 98.1 F 87 18 114/64 97 04/27/17 12:22 04/27/17 12:22 04/27/17 12:22 04/27/17 12:22 04/27/17 12:22 General appearance: Present: no acute distress, well-nourished Results - Labs CBC & Chem 7: 04/27/17 04:44 04/27/17 04:44 Labs: Laboratory Last Values WBC 8.2 K/mm3 (4.5-11.0) 04/27/17 04:44 RBC 3.57 M/mm3 (3.65-5.03) L 04/27/17 04:44 Hgb 10.6 gm/dl (10.1-14.3) 04/27/17 04:44 Hct 31.8 % (30.3-42.9) 04/27/17 04:44 MCV 89 fl (79-97) 04/27/17 04:44 MCH 30 pg (28-32) 04/27/17 04:44 MCHC 33 % (30-34) 04/27/17 04:44 RDW 13.1 % (13.2-15.2) L 04/27/17 04:44 Plt Count 202 K/mm3 (140-440) 04/27/17 04:44 Lymph % (Auto) 42.9 % (13.4-35.0) H 04/27/17 04:44 [place] % (Auto) 7.8 % (0.0-7.3) H 04/27/17 04:44 Eos % (Auto) 3.3 % (0.0-4.3) 04/27/17 04:44 Baso % (Auto) 1.3 % (0.0-1.8) 04/27/17 04:44 Lymph # 3.5 K/mm3 (1.2-5.4) 04/27/17 04:44 [place] # 0.6 K/mm3 (0.0-0.8) 04/27/17 04:44 Eos # 0.3 K/mm3 (0.0-0.4) 04/27/17 04:44 Baso # 0.1 K/mm3 (0.0-0.1) 04/27/17 04:44 Seg Neutrophils % 44.7 % (40.0-70.0) 04/27/17 04:44 Seg Neutrophils # 3.7 K/mm3 (1.8-7.7) 04/27/17 04:44 ESR 64 mm/Hr (0-20) 04/26/17 16:51 PT 13.7 Sec. (12.2-14.9) 04/25/17 12:48 INR 1.06 (0.87-1.13) 04/25/17 12:48 APTT 29.8 Sec. (24.2-36.6) 04/25/17 12:48 D-Dimer 437.74 ng/mlDDU (0-234) H 04/25/17 15:13 Sodium 138 mmol/L (137-145) 04/27/17 04:44 Potassium 4.4 mmol/L (3.6-5.0) 04/27/17 04:44 Chloride 101.0 mmol/L (98-107) 04/27/17 04:44 Carbon Dioxide 24 mmol/L (22-30) 04/27/17 04:44 Anion Gap 17 mmol/L 04/27/17 04:44 BUN 43 mg/dL (7-17) H 04/27/17 04:44 Creatinine 1.8 mg/dL (0.7-1.2) H 04/27/17 04:44 Estimated GFR 34 ml/min 04/27/17 04:44 BUN/Creatinine Ratio 23.88 % 04/27/17 04:44 Glucose 204 mg/dL (65-100) H 04/27/17 04:44 POC Glucose 213 (70-105) H 04/26/17 20:42 Lactic Acid 1.30 mmol/L (0.7-2.0) 04/25/17 15:13 Calcium 7.9 mg/dL (8.4-10.2) L 04/27/17 04:44 Total Bilirubin 0.40 mg/dL (0.1-1.2) 04/25/17 12:48 AST 31 units/L (5-40) 04/25/17 12:48 ALT 38 units/L (7-56) 04/25/17 12:48 Alkaline Phosphatase 107 units/L (35-129) 04/25/17 12:48 Troponin T 0.035 ng/mL (0.00-0.029) H 04/25/17 20:39 C-Reactive Protein 0.60 mg/dL (0.00-1.30) 04/26/17 16:51 NT-Pro-B Natriuret Pep 4705 pg/mL (0-900) H 04/25/17 12:48 Total Protein 6.8 g/dL (6.3-8.2) 04/25/17 12:48 Albumin 3.1 g/dL (3.9-5) L 04/25/17 12:48 Albumin/Globulin Ratio 0.8 % 04/25/17 12:48 Triglycerides 163 mg/dL (2-149) H 04/25/17 12:48 Cholesterol 176 mg/dL (50-199) 04/25/17 12:48 LDL Cholesterol Direct 102 mg/dL (50-130) 04/25/17 12:48 HDL Cholesterol 42 mg/dL (40-59) 04/25/17 12:48 Cholesterol/HDL Ratio 4.19 % 04/25/17 12:48 TSH 1.950 mlU/mL (0.270-4.200) 04/25/17 15:13 Free T4 1.38 ng/dL (0.76-1.46) 04/25/17 15:13 Urine Color Yellow (Yellow) 04/25/17 13:34 Urine Turbidity Clear (Clear) 04/25/17 13:34 Urine pH 6.0 (5.0-7.0) 04/25/17 13:34 Ur Specific [place] 1.012 (1.003-1.030) 04/25/17 13:34 Urine Protein >500 mg/dL (Negative) 04/25/17 13:34 Urine Glucose (UA) 150 mg/dL (Negative) 04/25/17 13:34 Urine Ketones Neg mg/dL (Negative) 04/25/17 13:34 Urine Blood Mod (Negative) 04/25/17 13:34 Urine Nitrite Neg (Negative) 04/25/17 13:34 Urine Bilirubin Neg (Negative) 04/25/17 13:34 Urine Urobilinogen < 2.0 mg/dL (<2.0) 04/25/17 13:34 Ur Leukocyte Esterase Tr (Negative) 04/25/17 13:34 Urine WBC (Auto) 10.0 /HPF (0.0-6.0) H 04/25/17 13:34 Urine RBC (Auto) 14.0 /HPF (0.0-6.0) 04/25/17 13:34 U Epithel Cells (Auto) 1.0 /HPF (0-13.0) 04/25/17 13:34 Urine Bacteria (Auto) 1+ /HPF (Negative) 04/25/17 13:34 Ur Transition Epith Cell 1 /HPF 04/25/17 13:34 Urine Mucus Few /HPF 04/25/17 13:34 Urine Creatinine 76.7 mg/dL (0.1-20.0) H 04/25/17 13:34 Urine Sodium 99 mEq/L 04/25/17 13:34
[2017-04-28] MEDS: ISORDIL TITRADOSE PO SCH ×2 (05:43→14:15)
[2017-04-28] MEDS: APRESOLINE PO SCH ×2 (05:43→14:11)
[2017-04-28] MEDS: LASIX PO SCH (05:44)
[2017-04-28] MEDS: HEPARIN SUB-Q SCH ×2 (05:54→14:16)
[2017-04-28 06:00] LABS: BUN/Creatinine Ratio 26.47; Calcium 8.1 mg/dL (8.4-10.2); Chloride 103.6 mmol/L (98-107); Potassium 4.3 mmol/L (3.6-5.0)
[2017-04-28] MEDS ORDERED: LEXISCAN IV ONE ×2 (07:56→08:04)
[2017-04-28] MEDS: HCTZ PO SCH (10:28)
[2017-04-28] MEDS: NORVASC PO SCH (10:28)
--- NOTE | 2017-04-28 10:58 | Progress Note ---
Assessment and Plan Assessment: CHF, diastolic EF 50-55% on echo 03/2017 No ischemia on MPI this admission, fixed mid anteroseptal wall defect Hypertension Elevated D-dimer low probability for PE on V/Q scan Acute renal failure Stabe creatinine Diabetes mellitus Necrotic left 3rd finger Recommendations: Diuresis and afterload reduction for heart failure with a preserved ejection fraction. asa, lipitor No further cardiac work-up is needed May proceed with finger amputation if needed from a cardiac standpoint Subjective Date of service: 04/28/17 Principal diagnosis: CHF, SOB Interval history: Patient has been stable overnight with no events Objective Vital Signs Temp Pulse Resp BP Pulse Ox 04/28/17 10:28 89 132/89 04/28/17 09:00 98.7 F 98 H 20 138/82 100 04/28/17 04:00 98.0 F 93 H 18 120/59 98 04/28/17 00:33 98.4 F 90 18 104/56 97 04/27/17 22:56 94 H 04/27/17 20:26 99 04/27/17 20:00 98.3 F 100 H 18 120/56 98 04/27/17 17:18 98.6 F 98 H 18 125/65 100 04/27/17 12:22 98.1 F 87 18 114/64 97 - Physical Examination General: No Apparent Distress HEENT: Positive: PERRL Neck: Positive: trachea midline Cardiac: Positive: Reg Rate and Rhythm Lungs: Positive: Normal Exam Neuro: Positive: Grossly Intact - Labs and Meds Comprehensive Metabolic Panel 04/28/17 Range/Units 04:50 Sodium 143 (137-145) mmol/L Potassium 4.3 (3.6-5.0) mmol/L Chloride 103.6 (98-107) mmol/L Carbon Dioxide 26 (22-30) mmol/L BUN 45 H (7-17) mg/dL Creatinine 1.7 H (0.7-1.2) mg/dL Glucose 110 H (65-100) mg/dL Calcium 8.1 L (8.4-10.2) mg/dL
[2017-04-28 14:16] VITALS: BP 148/77
--- NOTE | 2017-04-28 14:41 | Treadmill Report ---
INDICATION: Shortness of breath, preoperative cardiac clearance. FINDINGS: There is no scintigraphic evidence of myocardial ischemia. There is evidence of a small fixed mid anteroseptal wall defect comprising 7% on the left ventricular myocardium. The left ventricular cavity is normal in size. There is mild left ventricular systolic dysfunction with an ejection fraction measured at 48%. CONCLUSIONS: 1. No scintigraphic evidence of myocardial ischemia. 2. Small fixed mid anteroseptal wall defect. 3. Mild left ventricular systolic dysfunction with an ejection fraction measured at 48%. 4. Decreased uptake noted on gated imaging in the mid anteroseptal wall. This is a low risk myocardial perfusion scan associated with 1-year cardiovascular mortality of less than 1%. [facility]# [id number] HUBER/JEFFY
--- NOTE | 2017-04-28 14:47 | Discharge Summary ---
Providers - Providers Date of Admission: 04/25/17 14:48 Date of discharge: 04/28/17 Attending physician: SIMON RITTER MD 04/25/17 Consult to Cardiac Rehabilitation [CONS] Routine Reason For Exam: Phase I 04/25/17 14:52 Consult to Cardiology [CONS] Routine Consulting Provider: HUBER BARRETT Reason For Exam: acs 04/26/17 07:36 Consult to Wound/ET Nurse [CONS] Routine Reason For Exam: wound eval 04/26/17 16:21 Consult to Physician [CONS] Routine Consulting Provider: AMA MAYNARD Reason For Exam: [id number] of the left middle finger Place consult to:: ID Notified:: DR. MAYNARD Phone number called:: [phone] Was contact made?: Yes Time called:: 16:48 Comment:: LEFT MESSAGE ON PHONE Primary care physician: [employer] SUPERVISOR Hospitalization Reason for admission: acute diastolic CHF Condition: Good Pertinent studies: MPI negative for ischemia Recent Echo significant for diastolic dysfunction Hand x-ray extensive soft tissue swelling with possible infection of the bones and PIP joint Hospital course: 71 YO Female with HTN, DM, Obesity, L 3rd digit Cellulitis presents to ED for evaluation. Pt states that she has been experiencing leg swelling and shortness of breath for the past week, with worsening symptoms over the past 2 days. Pt acknowledges Orthopnea, PND, as well as 20 lbs unintentional weight gain and feeling bloated. Pt denies fever, chills, palpitations, NVD, Syncope, vertigo, BRBPR, productive cough, or skin rashes. Pt also states that her left middle finger has changed color, and is now black. Patient was admitted to the floor and was managed for acute diastolic heart failure and was managed appropriately and MPI was negative for ischemia. For her necrosis of the necrosis of the left middle finger Dr Mcwilliams was consulted and he said he will do amputation as an O/P with in 5-7days. ID was consulted and recommend to continue with clindamycin until amputation was done. Patient was known to Dr Mcwilliams in her previous admission and he did incision and drainage of the same finger. Disposition: TO HOME OR SELFCARE Time spent for discharge: 31 minutes - Discharge Diagnoses (1) CHF (congestive heart failure) Status: Acute Qualifiers: Congestive heart failure type: diastolic Congestive heart failure chronicity: C (2) Cardiorenal syndrome Status: Acute Qualifiers: Hypertensive chronic kidney disease stage: H Heart failure presence: H (3) Gangrene of finger Status: Acute (4) Hypertensive urgency Status: Acute Core Measure Documentation - Palliative Care Palliative Care/ Comfort Measures: Not Applicable - Core Measures Any of the following diagnoses?: heart failure - Heart Failure Discharge Requirements MAXIMILIANO/ARB for LVSD if EF <40%: Not Applicable Beta sakina at discharge: Yes Exam - Physical Exam Narrative exam: Not in cardiopulmonary distress. The patient appeared well nourished and normally developed. Vital signs as documented. Head exam is unremarkable. No scleral icterus . Neck is without jugular venous distension, thyromegaly, or carotid bruits. Lungs significant for bibasilar rales. Cardiac exam reveals regular rate and Rhythm. First and second heart sounds normal. No murmurs, rubs or gallops. Abdominal exam reveals normal bowel sounds, no masses, no organomegaly and no aortic enlargement. Extremities significant for necrosis of the left middle finger. Edema subsided. MATERIAL HANDLER 1ST SHIFT: Alert and oriented 3. No focal weakness. - Constitutional Vitals: Temp Pulse Resp BP Pulse Ox 98.6 F 98 H 18 148/77 98 04/28/17 12:00 04/28/17 14:15 04/28/17 12:00 04/28/17 14:15 04/28/17 12:00 Plan Activity: no restrictions Weight Bearing Status: Full Weight Bearing Diet: low cholesterol, low salt Follow up with: TORRES WOODWARD MD [Primary Care Provider] - 7 Days AMY MCWILLIAMS MD [Staff Physician] - 7 Days Prescriptions: AtorvaSTATin [Lipitor] 20 mg PO QHS #30 tablet amLODIPine [Norvasc] 10 mg PO QDAY #30 tablet Carvedilol [Coreg] 3.125 mg PO BID #60 tablet Clindamycin [Clindamycin CAP] 300 mg PO Q8H #21 cap Furosemide [Furosemide ORAL LIQ] 40 mg PO QDAY #30 ml hydrALAZINE [Apresoline TAB] 50 mg PO Q8HR #90 tablet Insulin NPH/Regular [NovoLIN 70/30] 8 unit SQ BID #1 vial Isosorbide Dinitrate [Isordil Titradose] 20 mg PO Q8HR #90 tablet Potassium Chloride 20 meq PO QDAY #30 packet traMADol [Ultram 50 MG tab] 50 mg PO Q6HR PRN #12 tablet PRN Reason: Pain
[2017-04-29] MEDS ORDERED: HALFPRIN EC PO SCH (10:00)
== END 2017-04-28 18:11 | disposition home or self-care (01) | DRG 280 ==
LOC: ED 11:59 → 4A 14:48
PROVIDERS: ADMIT Internal Medicine; ATTEND Internal Medicine
DX: I21.4 Non-ST elevation (NSTEMI) myocardial infarction (principal); I50.33 Acute on chronic diastolic (congestive) heart failure; E11.52 Type 2 diabetes mellitus with diabetic peripheral angiopathy with gangrene; N17.9 Acute kidney failure, unspecified; I13.0 Hypertensive heart and chronic kidney disease with heart failure and stage 1 through stage 4 chronic kidney disease, or unspecified chronic kidney disease; I16.0 Hypertensive urgency; Z87.891 Personal history of nicotine dependence; Z79.4 Long term (current) use of insulin; E11.22 Type 2 diabetes mellitus with diabetic chronic kidney disease; N18.9 Chronic kidney disease, unspecified; E66.9 Obesity, unspecified; Z68.35 Body mass index [BMI] 35.0-35.9, adult; Z83.3 Family history of diabetes mellitus; Z82.49 Family history of ischemic heart disease and other diseases of the circulatory system; L03.012 Cellulitis of left finger; I25.10 Atherosclerotic heart disease of native coronary artery without angina pectoris
CPT/HCPCS: 36415; 71020; 78452; 78582; 80048; 80053; 80061; 81001; 82140; 82570; 82962; 83880; 84300; 84439; 84443; 84484; 85025; 85379; 85610; 85652; 85730; 86140; 87040; 87076; 87116; 87186; 93005; 93010; 93017; 94760; 96365; 96367; 96375; A9502; A9540; A9558; J0360; J1644; J1815; J1940; J2543; J2785

== ENCOUNTER 2017-06-15 08:25 | Day surgery (SDC) | payer MEDICARE ==
[~2017-06-15 08:25] MED LIST: NACL 0.9% IR ONE; NEOSPORIN GU IR ONE
--- NOTE | 2017-06-15 10:44 | Anesthesia Consultation ---
Anesthesia Consult and Med Hx Date of service: 06/15/17 - Airway Anesthetic Teeth Evaluation: Good ROM Head & Neck: Adequate Mental/Hyoid Distance: Adequate Mallampati Class: Class II Intubation Access Assessment: Probably Good - Pulmonary Exam CTA: Yes - Cardiac Exam Cardiac Exam: RRR - Pre-Operative Health Status ASA Pre-Surgery Classification: ASA3 Proposed Anesthetic Plan: General - Pulmonary Hx Smoking: Yes (former) Hx Respiratory Symptoms: Yes (history of bronchitis) Hx Sleep Apnea: Yes (No CPAP) - Cardiovascular System Hx Hypertension: Yes - Central Nervous System Hx Psychiatric Problems: No - Endocrine Hx Non-Insulin Dependent Diabetes: Yes - Other Systems Hx Alcohol Use: Yes (occas) Hx Substance Use: Yes (past marijuana use) Hx Cancer: Yes
--- NOTE | 2017-06-15 10:44 | Anesthesia Day of Surgery ---
Anesthesia Day of Surgery - Day of Surgery Patient Examined: Yes Patient H&P Reviewed: Yes Patient is NPO: Yes
[2017-06-15] MEDS ORDERED: PEPCID ONE (10:46)
[2017-06-15] MEDS ORDERED: DIPRIVAN 10 MG/ML IV ONE (10:52)
[2017-06-15] MEDS ORDERED: XYLOCAINE MPF 2% ONE (10:52)
[2017-06-15] MEDS ORDERED: SUBLIMAZE ONE (10:52)
[2017-06-15] MEDS ORDERED: PEPCID PO NR (11:00)
[2017-06-15] MEDS ORDERED: NACL 0.9% 1000 ML 1,000 ML IV SCH (11:00)
[2017-06-15] MEDS ORDERED: ANCEF/STERILE WATER 2 GM/20 ML IV NR (11:00)
[2017-06-15] MEDS ORDERED: VERSED IV NR (11:00)
[2017-06-15] MEDS ORDERED: MARCAINE 0.25% INFILTRATI ONE (11:08)
[2017-06-15] MEDS ORDERED: NACL 0.9% IR ONE (11:17)
[2017-06-15] MEDS ORDERED: NEO SYNEPHRINE/NS Syringe(OR USE) IV ONE (11:30)
[2017-06-15] MEDS ORDERED: ZOFRAN ONE (11:49)
[2017-06-15] MEDS ORDERED: DECADRON ONE (11:49)
--- NOTE | 2017-06-15 12:40 | Post Anesthesia Evaluation ---
- Post Anesthesia Evaluation Patient Participated: Yes Airway Patent: Yes Stable Respiratory Function: Yes Nausea/Vomiting: No Temp > 96.8F: Yes Pain Manageable: Yes Adequeate Hydration: Yes Anesthesia Complications: No Block Receding Appropriately: Not Applicable Patient on Ventilator: No
[2017-06-15 18:31] VITALS: BP 139/73
--- NOTE | 2017-07-16 22:47 | Procedure Note ---
Date of procedure: 06/15/17 Pre-op diagnosis: gangrene left 3rd finger Post-op diagnosis: same Procedure: partial amputation left 3rd finger Procedure The patient brought to the OR and placed on the table supine, the left upper extremity prepped and draped in the usual sterile fashion. A time-out procedure done to identify the patient and the correct operative site. The distal phalanx excised at the DIP joint and given to our scrub nurse for pathologic examination. The skin on the volar surface brought up and attached to dorsal surface by way of interrupted sutures. Routine post op dressing applied and there were no complications noted. Anesthesia: regional Surgeon: AMY MCINTOSH Pathology: list (distal phalanx lt 3rd digit) Condition: stable Disposition: PACU
== END 2017-06-15 14:05 | disposition home or self-care (01) ==
LOC: OR 08:25
PROVIDERS: ATTEND Orthopaedic Surgery
DX: E11.52 Type 2 diabetes mellitus with diabetic peripheral angiopathy with gangrene (principal); M86.10 Other acute osteomyelitis, unspecified site; I10 Essential (primary) hypertension; Z72.89 Other problems related to lifestyle; Z87.898 Personal history of other specified conditions; Z87.891 Personal history of nicotine dependence
CPT/HCPCS: 26236; 36415; 82962; 84132; 88305; 88311; J1100; J2370; J2405; J2704; J3010; J7030; 88302; A4217

== ENCOUNTER 2019-01-13 05:17 | Emergency (ER) | payer OTHER, MEDICARE ==
[2019-01-13 05:25] VITALS: BP 192/77
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
[2019-01-13] MEDS ORDERED: IBUPROFEN PO ONE (09:58)
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
== END 2019-01-13 10:28 | disposition home or self-care (01) ==
LOC: ED 05:17
DX: S13.4XXA Sprain of ligaments of cervical spine, initial encounter (principal); S46.912A Strain of unspecified muscle, fascia and tendon at shoulder and upper arm level, left arm, initial encounter; I10 Essential (primary) hypertension; E11.9 Type 2 diabetes mellitus without complications; G43.909 Migraine, unspecified, not intractable, without status migrainosus; Z95.5 Presence of coronary angioplasty implant and graft; Z79.4 Long term (current) use of insulin; V49.59XA Passenger injured in collision with other motor vehicles in traffic accident, initial encounter; Y93.89 Activity, other specified; Y92.410 Unspecified street and highway as the place of occurrence of the external cause; Y99.8 Other external cause status
CPT/HCPCS: 72040

== ENCOUNTER 2021-02-08 03:12 | Inpatient (IN) | payer MEDICARE ==
[2021-02-08] MEDS ORDERED: FUROSEMIDE 40 MG/4 ML INJ IV ONE (03:17)
[2021-02-08] MEDS ORDERED: NITROGLYCERIN 0.4 MG TAB SUBL SL ONE (03:18)
--- NOTE | 2021-02-08 03:23 | Emergency Department Report ---
ED Shortness of Breath HPI - General Stated Complaint: QUYEN Time Seen by Provider: 02/08/21 03:17 - History of Present Illness Initial Comments: Patient is 75 years old female with history of congestive heart failure, hypertension, diabetes and left below-knee amputation. Patient brought to the emergency room via EMS from home for evaluation of respiratory distress. Patient stated the symptoms started this morning with difficulty in breathing. Patient denied any chest pain, fever or chills. EMS stated that patient initial oxygen saturation was 73% on room air and her blood pressure was 240/150. Patient started on BiPAP by EMS and given Lasix 40 mg IV. Upon arrival to the ER patient stated that she is feeling a little bit better. Patient continued on BiPAP and received another 40 mg of Lasix IV and nitroglycerin 0.4 mg p.o. Complaint: shortness of breath -: Sudden, This morning Severity: severe Known History Of: congestive heart failure, diabetes Associated Symptoms: denies other symptoms Treatments Prior to Arrival: oxygen, NIPPV, diuretics - Related Data Home Medications Medication Instructions Recorded Confirmed Last Taken traMADoL [Ultram] 50 mg PO Q4HR PRN 06/15/17 06/15/17 06/13/17 Previous Rx's Medication Instructions Recorded Last Taken Type AtorvaSTATin 20 mg PO QHS #30 tablet 04/28/17 06/12/17 Rx Furosemide [Furosemide ORAL LIQ] 40 mg PO QDAY #30 ml 04/28/17 06/12/17 Rx Insulin NPH/Regular [NovoLIN 70/30] 8 unit SQ BID #1 vial 04/28/17 06/14/17 22:00 Rx 8 UNITS Isosorbide Dinitrate [Isordil] 20 mg PO Q8HR #90 tablet 04/28/17 06/12/17 Rx Potassium Chloride 20 meq PO QDAY #30 packet 04/28/17 Unknown Rx amLODIPine 10 mg PO QDAY #30 tablet 04/28/17 06/12/17 Rx carvediloL [Coreg] 3.125 mg PO BID #60 tablet 04/28/17 06/15/17 10:30 Rx hydrALAZINE [Apresoline TAB] 50 mg PO Q8HR #90 tablet 04/28/17 06/12/17 Rx HYDROcodone/APAP 5-325 [[place] 1 each PO Q4HR PRN #35 tablet 06/15/17 Unknown Rx 5-325 mg TAB] Acetaminophen [Tylenol Arthritis] 650 mg PO Q6HR PRN #30 tablet.er 07/27/17 Unknown Rx Bacitracin Zinc Oint [Antibiotic 1 applic TP TID #1 oint...g. 07/27/17 Unknown Rx Oint] Ibuprofen [Motrin] 600 mg PO Q8H PRN #30 tablet 07/27/17 Unknown Rx Cyclobenzaprine HCl [Flexeril 5 MG 5 mg PO QHS #10 tab 01/13/19 Unknown Rx TAB] Ibuprofen 600 mg PO Q8H PRN #20 tablet 01/13/19 Unknown Rx Allergies Allergy/AdvReac Type Severity Reaction Status Date / Time No Known Allergies Allergy Unverified 06/14/17 08:11 ED Review of Systems ROS: Stated complaint: QUYEN Other details as noted in HPI Comment: All other systems reviewed and negative Constitutional: denies: chills, fever Respiratory: shortness of breath, SOB with exertion, SOB at rest Cardiovascular: denies: chest pain Gastrointestinal: denies: abdominal pain, nausea, vomiting Neurological: denies: headache, weakness ED Past Medical Hx - Past Medical History Hx Hypertension: Yes Hx Diabetes: Yes Hx Headaches / Migraines: Yes Hx HIV: No Additional medical history: Left middle finger bacterial infection - Surgical History Hx Coronary Stent: Yes (2005) - Social History Smoking Status: Never Smoker Substance Use Type: None - Medications Home Medications: Home Medications Medication Instructions Recorded Confirmed Last Taken Type AtorvaSTATin 20 mg PO QHS #30 tablet 04/28/17 06/15/17 06/12/17 Rx Furosemide [Furosemide ORAL LIQ] 40 mg PO QDAY #30 ml 04/28/17 06/15/17 06/12/17 Rx Insulin NPH/Regular [NovoLIN 70/30] 8 unit SQ BID #1 vial 04/28/17 06/15/17 06/14/17 22:00 Rx 8 UNITS Isosorbide Dinitrate [Isordil] 20 mg PO Q8HR #90 tablet 04/28/17 06/15/17 06/12/17 Rx Potassium Chloride 20 meq PO QDAY #30 packet 04/28/17 06/14/17 Unknown Rx amLODIPine 10 mg PO QDAY #30 tablet 04/28/17 06/15/17 06/12/17 Rx carvediloL [Coreg] 3.125 mg PO BID #60 tablet 04/28/17 06/15/17 06/15/17 10:30 Rx hydrALAZINE [Apresoline TAB] 50 mg PO Q8HR #90 tablet 04/28/17 06/15/17 06/12/17 Rx HYDROcodone/APAP 5-325 [[place] 1 each PO Q4HR PRN #35 tablet 06/15/17 Unknown Rx 5-325 mg TAB] traMADoL [Ultram] 50 mg PO Q4HR PRN 06/15/17 06/15/17 06/13/17 History Acetaminophen [Tylenol Arthritis] 650 mg PO Q6HR PRN #30 tablet.er 07/27/17 Unknown Rx Bacitracin Zinc Oint [Antibiotic 1 applic TP TID #1 oint...g. 07/27/17 Unknown Rx Oint] Ibuprofen [Motrin] 600 mg PO Q8H PRN #30 tablet 07/27/17 Unknown Rx Cyclobenzaprine HCl [Flexeril 5 MG 5 mg PO QHS #10 tab 01/13/19 Unknown Rx TAB] Ibuprofen 600 mg PO Q8H PRN #20 tablet 01/13/19 Unknown Rx ED Physical Exam - General General appearance: in distress - Head Head exam: Present: atraumatic, normocephalic, normal inspection - Eye Eye exam: Present: normal appearance, PERRL - ENT ENT exam: Present: normal exam, normal orophraynx, mucous membranes moist - Neck Neck exam: Present: normal inspection, full ROM. Absent: tenderness, meningismus - Respiratory Respiratory exam: Present: respiratory distress, rales, rhonchi, accessory muscle use, decreased breath sounds. Absent: wheezes, prolonged expiratory - Cardiovascular Cardiovascular Exam: Present: gallop - GI/Abdominal GI/Abdominal exam: Present: soft, normal bowel sounds. Absent: distended, tenderness, guarding, rebound, rigid - Extremities Exam Extremities exam: Absent: calf tenderness - Back Exam Back exam: Present: normal inspection, full ROM. Absent: CVA tenderness (R), CVA tenderness (L) - Neurological Exam Neurological exam: Present: alert, oriented X3, CN II-XII intact - Skin Skin exam: Present: warm, intact, normal color ED Course Vital Signs 02/08/21 02/08/21 02/08/21 03:17 03:26 03:30 Pulse Rate 104 H 102 H 77 Respiratory 23 26 H Rate Blood Pressure 197/90 Blood Pressure 192/106 [Left] O2 Sat by Pulse 96 96 Oximetry 02/08/21 04:00 Pulse Rate 83 Respiratory 22 Rate Blood Pressure Blood Pressure 135/74 [Left] O2 Sat by Pulse 98 Oximetry ED Medical Decision Making - Lab Data Result diagrams: 02/08/21 03:45 02/08/21 03:45 - EKG Data -: EKG Interpreted by Me EKG shows normal: sinus rhythm Rate: normal - EKG Data Interpretation: no acute changes - Radiology Data Radiology results: report reviewed - Medical Decision Making Patient is 75 years old female with history of congestive heart failure, hypertension, diabetes and left below-knee amputation. Patient brought to the emergency room via EMS from home for evaluation of respiratory distress. Patient stated the symptoms started this morning with difficulty in breathing. Patient denied any chest pain, fever or chills. EMS stated that patient initial oxygen saturation was 73% on room air and her blood pressure was 240/150. Patient started on BiPAP by EMS and given Lasix 40 mg IV. Upon arrival to the ER patient stated that she is feeling a little bit better. Patient continued on BiPAP and received another 40 mg of Lasix IV and nitroglycerin 0.4 mg p.o. Patient stated that she is feeling much better. EKG showed no ST elevation. Labs reviewed and showed slightly elevated troponin. Patient still denying any chest pain. I discussed the patient with Dr. Mancilla, he agreed to admit the patient to medical service for further management. Critical Care Time: Yes Critical care time in (mins) excluding proc time.: 30 Critical care attestation.: If time is entered above; I have spent that time in minutes in the direct care of this critically ill patient, excluding procedure time. ED Disposition Clinical Impression: Acute respiratory failure, Acute exacerbation of CHF (congestive heart failure) Disposition: OP ADMIT IP TO THIS HOSP Is pt being admited?: Yes Condition: Stable
[2021-02-08 03:54] LABS: Basophils # (Auto) 0.1 K/mm3 (0.0-0.1); Basophils % (Auto) 1.1 % (0.0-1.8); Eosinophils # (Auto) 0.4 K/mm3 (0.0-0.4); Eosinophils % (Auto) 3.4 % (0.0-4.3); Hematocrit 36.1 % (30.3-42.9); Hemoglobin 12.1 gm/dl (10.1-14.3); Lymphocytes # (Auto) 2.8 K/mm3 (1.2-5.4); Lymphocytes % (Auto) 23.6 % (13.4-35.0); Mean Corpuscular HGB Conc 34 % (30-34); Mean Corpuscular Volume 90 fl (79-97); Monocytes # (Auto) 0.5 K/mm3 (0.0-0.8); Monocytes % (Auto) 4.2 % (0.0-7.3); Platelet Count 196 K/mm3 (140-440); Red Blood Count 4.01 M/mm3 (3.65-5.03); Red Cell Distribution Width 14.1 % (13.2-15.2)
--- NOTE | 2021-02-08 03:54 | XRay Report ---
CHEST 1 VIEW 02/08/2021 3:28 AM INDICATION / CLINICAL INFORMATION: Dyspnea. COMPARISON: 2 views of the chest from 04/25/2017. FINDINGS: SUPPORT DEVICES: None. HEART / MEDIASTINUM: The cardiac silhouette is normal in size with similar moderate aortic atheroscle rosis. LUNGS / PLEURA: There are generalized bilateral pulmonary opacities, most notable along the right ne g base. No significant pleural effusion. No pneumothorax. ADDITIONAL FINDINGS: No significant additional findings. IMPRESSION: Suspected bilateral pulmonary edema. Signer Name: Arie Gracia MD Signed: 02/08/2021 3:49 AM Workstation Name: [id number]
[2021-02-08 04:05] LABS: INR 0.99 (0.87-1.13)
[2021-02-08 04:15] LABS: Calcium 8.1 mg/dL (8.4-10.2)
[2021-02-08 04:45] LABS: Chol/HDL Ratio 3.8 %
[2021-02-08] MEDS ORDERED: DEXTROSE 50% IN WATER (25GM) 50 ML SYRINGE IV PRN (04:50)
[2021-02-08] MEDS ORDERED: ONDANSETRON 4 MG/2 ML INJ IV PRN (04:50)
[2021-02-08] MEDS ORDERED: ACETAMINOPHEN 325 MG TAB PO PRN (04:50)
[2021-02-08] MEDS ORDERED: MAGNESIUM HYDROXIDE (MOM) ORAL LIQD UDC PO PRN (04:50)
[2021-02-08] MEDS ORDERED: MORPHINE 2 MG/1 ML INJ IV PRN (04:50)
--- NOTE | 2021-02-08 05:01 | History and Physical Report ---
History of Present Illness Date of examination: 02/08/21 Date of admission: 02/08/2021 Chief complaint: Shortness of breath. History of present illness: 65-year-old -Vietnamese female with known history of hypertension, coronary artery disease with stent placement in the past, CHF, diabetes mellitus with left below-knee amputation presents to the emergency room via EMS today for evaluation of respiratory distress. Patient states that she started having diff iculty breathing earlier today and she has had some associated mild cough. Cough is nonproductive. She denies any fever or chills and denies any chest pain. Denies any headache or dizziness and denies any diaphoresis. No nausea vomiting and no abdominal pain. Patient denies any sick contacts and no recent travel. Denies any contact with anyone with COVID-19. She however admits that she has not been quite compliant with her medications at times. 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 By EMS oxygen saturation was about 73% on room air initially and blood pressure was about 240/150 mmHg. She was in severe respiratory distress and was placed on BiPAP and given IV 40 mg of Lasix by EMS. Upon arrival in the emergency room she felt much better and received an extra dose of Lasix 40 mg IV and nitroglycerin 0.4 mg p.o. Patient was later switched to oxygen by nasal cannula after improvement in her respiratory distress. Work-up in the emergency room today, significant findings were a BNP of 2035 and troponin of 0.050. Patient also had abnormal lipid profile. Chest x-ray was suspicious for bilateral pulmonary edema. Patient is being admitted with CHF exacerbation with accompanying respiratory failure. Past History Past Medical History: CAD (With stent placement in 2005), diabetes, hypertension Past Surgical History: PTCA, Other (Left middle finger bacterial infection, left BKA) Social history: no significant social history Family history: no significant family history Medications and Allergies Allergies Allergy/AdvReac Type Severity Reaction Status Date / Time No Known Allergies Allergy Unverified 06/14/17 08:11 Home Medications Medication Instructions Recorded Confirmed Last Taken Type AtorvaSTATin 20 mg PO QHS #30 tablet 04/28/17 06/15/17 06/12/17 Rx Furosemide [Furosemide ORAL LIQ] 40 mg PO QDAY #30 ml 04/28/17 06/15/17 06/12/17 Rx Insulin NPH/Regular [NovoLIN 70/30] 8 unit SQ BID #1 vial 04/28/17 06/15/17 06/14/17 22:00 Rx 8 UNITS Isosorbide Dinitrate [Isordil] 20 mg PO Q8HR #90 tablet 04/28/17 06/15/17 06/12/17 Rx Potassium Chloride 20 meq PO QDAY #30 packet 04/28/17 06/14/17 Unknown Rx amLODIPine 10 mg PO QDAY #30 tablet 04/28/17 06/15/17 06/12/17 Rx carvediloL [Coreg] 3.125 mg PO BID #60 tablet 04/28/17 06/15/17 06/15/17 10:30 Rx hydrALAZINE [Apresoline TAB] 50 mg PO Q8HR #90 tablet 04/28/17 06/15/17 06/12/17 Rx HYDROcodone/APAP 5-325 [[place] 1 each PO Q4HR PRN #35 tablet 06/15/17 Unknown Rx 5-325 mg TAB] traMADoL [Ultram] 50 mg PO Q4HR PRN 06/15/17 06/15/17 06/13/17 History Acetaminophen [Tylenol Arthritis] 650 mg PO Q6HR PRN #30 tablet.er 07/27/17 Unknown Rx Bacitracin Zinc Oint [Antibiotic 1 applic TP TID #1 oint...g. 07/27/17 Unknown Rx Oint] Ibuprofen [Motrin] 600 mg PO Q8H PRN #30 tablet 07/27/17 Unknown Rx Cyclobenzaprine HCl [Flexeril 5 MG 5 mg PO QHS #10 tab 01/13/19 Unknown Rx TAB] Ibuprofen 600 mg PO Q8H PRN #20 tablet 01/13/19 Unknown Rx Active Meds: Active Medications Acetaminophen (Acetaminophen 325 Mg Tab) 650 mg PO Q4H PRN PRN Reason: Pain MILD(1-3)/Fever >100.5/HA[place] Dextrose (Dextrose 50% In Water (25gm) 50 Ml Syringe) 50 ml IV Q30MIN PRN; Protocol PRN Reason: Hypoglycemia Furosemide (Furosemide 40 Mg/4 Ml Inj) 40 mg IV BID@0600,1800 [facility] Heparin Sodium (Porcine) (Heparin 5,000 Unit/1 Ml Vial) 5,000 unit SUB-Q Q8HR [facility] Insulin Human Lispro (Insulin Lispro 100 Unit/Ml) 0 unit SUB-Q ACHS LUTHER; Protocol Magnesium Hydroxide (Magnesium Hydroxide (Mom) Oral Liqd Udc) 30 ml PO Q4H PRN PRN Reason: Constipation Morphine Sulfate (Morphine 2 Mg/1 Ml Inj) 2 mg IV Q4H PRN PRN Reason: Pain, Moderate (4-6) Ondansetron HCl (Ondansetron 4 Mg/2 Ml Inj) 4 mg IV Q8H PRN PRN Reason: Nausea And Vomiting Sodium Chloride (Sodium Chloride 0.9% 10 Ml Flush Syringe) 10 ml IV BID LUTHER Sodium Chloride (Sodium Chloride 0.9% 10 Ml Flush Syringe) 10 ml IV PRN PRN PRN Reason: LINE FLUSH Review of Systems Constitutional: no fever, no chills Ears, nose, mouth and throat: no nasal congestion, no sore throat Cardiovascular: no chest pain, no palpitations Respiratory: cough, shortness of breath, no cough with sputum, no wheezing Gastrointestinal: no abdominal pain, no nausea, no vomiting, no diarrhea, no constipation Genitourinary Female: no pelvic pain, no flank pain, no dysuria, no hematuria Musculoskeletal: no neck pain, no low back pain Integumentary: no rash, no pruritis Neurological: no headaches, no confusion Psychiatric: no anxiety, no depression Endocrine: no polyphagia, no polydipsia, no polyuria, no nocturia Exam - Constitutional Vitals: Temp Pulse Resp BP Pulse Ox 83 20 135/74 99 02/08/21 04:00 02/08/21 04:34 02/08/21 04:00 02/08/21 04:34 General appearance: Present: no acute distress, well-nourished - EENT Eyes: Present: PERRL, EOM intact. Absent: scleral icterus ENT: hearing intact, clear oral mucosa, dentition normal - Neck Neck: Present: supple, normal ROM - Respiratory Respiratory effort: normal Respiratory: bilateral: rales - Cardiovascular Rhythm: regular Heart Sounds: Present: S1 & S2. Absent: gallop, systolic murmur, diastolic murmur, rub, click - Extremities Extremities: no ischemia, pulses intact, pulses symmetrical, No edema, normal temperature, normal color, Full ROM, abnormal (Left below-knee amputation.) Peripheral Pulses: within normal limits - Abdominal General gastrointestinal: Present: soft, non-tender, non-distended, normal bowel sounds. Absent: mass - Integumentary Integumentary: Present: clear, warm, dry. Absent: rash - Musculoskeletal Musculoskeletal: strength equal bilaterally - Psychiatric Psychiatric: appropriate mood/affect, intact judgment & insight, memory intact, cooperative - Neurologic Neurologic: CNII-XII intact, no focal deficits, moves all extremities HEART Score - HEART Score Troponin: Troponin T 0.050 ng/mL (0.00-0.029) H 02/08/21 03:45 Results - Labs CBC & Chem 7: 02/08/21 03:45 02/08/21 03:45 Labs: Abnormal lab results 02/08/21 02/08/21 02/08/21 Range/Units 03:45 03:45 04:30 WBC 11.9 H (4.5-11.0) K/mm3 Seg Neutrophils # 8.1 H (1.8-7.7) K/mm3 Chloride 109.3 H (98-107) mmol/L BUN 29 H (7-17) mg/dL Creatinine 1.8 H (0.6-1.2) mg/dL Glucose 133 H (65-100) mg/dL Calcium 8.1 L (8.4-10.2) mg/dL Troponin T 0.050 H (0.00-0.029) ng/mL NT-Pro-B Natriuret Pep 2035 H (0-900) pg/mL Triglycerides 155 H (2-149) mg/dL Cholesterol 209 H (50-199) mg/dL LDL Cholesterol Direct 139 H (50-130) mg/dL Assessment and Plan - Patient Problems (1) Acute exacerbation of CHF (congestive heart failure) Current Visit: Yes Status: Acute Plan to address problem: Patient admitted and placed on diuretics. Will monitor inputs and outputs and also monitor daily weights. We will schedule patient for echocardiogram. Consult placed to cardiology for evaluation. (2) Acute respiratory failure Current Visit: Yes Status: Acute Plan to address problem: Secondary to CHF exacerbation. She was initially on BiPAP. Patient currently on oxygen by nasal cannula. We will keep oxygen saturation greater equal to 94%. (3) HTN (hypertension) Current Visit: No Status: Acute Plan to address problem: Blood pressure initially elevated. Possibly secondary to noncompliance. Compliance encouraged. We will resume routine home medications once reconciled and monitor vital signs closely. (4) T2DM (type 2 diabetes mellitus) Current Visit: No Status: Chronic Qualifiers: Diabetes mellitus complication status: with hyperglycemia Plan to address problem: We will monitor Accu-Cheks closely. Patient placed on sliding scale insulin. (5) Elevated troponin Current Visit: Yes Status: Acute Plan to address problem: Possibly secondary to troponin leak and kidney disease. Patient has denied any chest pain. We will monitor troponin levels. Will await evaluation and recommendation from cardiology. (6) Acute kidney injury superimposed on chronic kidney disease Current Visit: Yes Status: Acute Plan to address problem: Creatinine was 0.8 about 4 years ago. Now 1.8 Consult placed to nephrology for evaluation and recommendation. (7) DVT prophylaxis Current Visit: No Status: Acute Plan to address problem: Patient placed on subcutaneous heparin. (8) Full code status Current Visit: Yes Status: Acute Plan to address problem: Patient is full code.
[2021-02-08] MEDS: FUROSEMIDE 40 MG/4 ML INJ IV SCH ×2 (06:54→17:52)
[2021-02-08] MEDS: HEPARIN 5,000 UNIT/1 ML VIAL SUB-Q SCH ×3 (07:21→22:41)
[2021-02-08] MEDS: INSULIN LISPRO 100 UNIT/ML SUB-Q SCH ×4 (09:11→22:39)
--- NOTE | 2021-02-08 11:46 | Event Note ---
Date: 02/08/21 This is the 2nd visit after midnight patient seen and examined Chart reviewed, vitals noted, discussed with RN/CM Patient denies any chest pain but with sig SOB even on resting Patient with 4L n/c, trace edema on b/l LE, +ve crackles on basilar lung area 65-year-old -[place] female with known history of hypertension, coronary artery disease with stent placement in the past, CHF, diabetes mellitus with left below-knee amputation presents to the emergency room via EMS for evaluation of respiratory distress. . By EMS oxygen saturation was about 73% on room air initially and blood pressure was about 240/150 mmHg. Work-up in the emergency room showed BNP of 2035, Cr 1.8, and troponin of 0.050> 0.078, abnormal lipid profile Chest x-ray was suspicious for bilateral pulmonary edema. Patient was admitted with CHF exacerbation and hypoxic respiratory failure requiring BiPAP on admission Will order aspirin, statin, resume home meds as appropriate follow BMP, cont supplemental O2, cont iv lasix Order for serial troponin, follow cardiology recommendation --It took me about 28 minutes to reevaluate and reasses this patient, discussed with RN/CM, review medical documents, lab results, imaging, medication list and placing order.
[2021-02-08] MEDS ORDERED: HYDROcodone/ACETAMINOPHEN 5-325 MG TAB PO PRN (12:00)
[2021-02-08] MEDS: INSULIN NPH/REGULAR 70/30 INJ SUB-Q SCH ×2 (13:21→22:39)
[2021-02-08] MEDS: hydrALAZINE 25 MG TAB PO SCH ×2 (13:21→22:40)
[2021-02-08] MEDS: ASPIRIN 325 MG TAB PO SCH (13:21)
[2021-02-08] MEDS ORDERED: NON-FORMULARY EACH (Cyclobenzaprine Hcl [Flexeril 5 Mg Tab] 5 MG Tablet) PO SCH (22:00)
[2021-02-08] MEDS: CYCLOBENZAPRINE 10 MG TAB PO SCH (22:40)
--- NOTE | 2021-02-09 02:13 | Consultation ---
DATE OF CONSULTATION: 02/08/2021 HISTORY OF PRESENT ILLNESS: The patient is a 75-year-old female with multiple medical problems including a history of coronary artery disease and congestive heart failure and she presented with shortness of breath and ankle swelling that began the morning prior to admission. There has been no chest pain. She states compliance with medications, but she does not check her blood pressure regularly. Systolic blood pressure was 240/150. There is a prior history of congestive heart failure as well as coronary disease, diabetes, hyperlipidemia, peripheral vascular disease. She does not weigh herself and she does not check her blood pressure regularly and she does not follow a strict diet. She had a [id number] amputation on the left about 2 years ago. There has been no smoking. There have been no arrhythmias or tachycardia noted. She does describe insomnia and snoring. Chest x-ray was consistent with pulmonary edema. ALLERGIES: None listed. SOCIAL HISTORY: Smoking: None. Alcohol: No heavy use. PAST SURGICAL HISTORY: Cataracts, colon polyps, left [id number]-[id number]-[id number] amputation. FAMILY HISTORY: Noncontributory. REVIEW OF SYSTEMS: She did not describe any other medical problems or complaints other than listed above. There is a description of headaches and/or migraines. There is a description of a left middle finger bacterial infection. She had a coronary stent placed in 2005. She is unaware of any cardiomyopathy issues or chronic kidney disease. PHYSICAL EXAMINATION: GENERAL: A well-developed, moderately overweight, no acute distress. Alert, oriented, and cooperative with exam. MENTAL STATUS: Normalized. HEENT: Nose and throat unremarkable. NECK: Reveals JVD. There are no bruits. NECK: Supple. No masses. LUNGS: A few rales at both lung bases. No labored respirations at this time. HEART: Regular rhythm, soft S4. Grade I systolic murmur. ABDOMEN: Soft, nontender, no masses. Bowel sounds intact. EXTREMITIES: No cyanosis, clubbing, edema. There is a left xusgs-pia-ejdt amputation. The right leg is remarkable for diminished pulses at the ankles. EKG: No acute electrocardiographic changes. IMPRESSION: 1. Acute systolic congestive heart failure: Improving, possibly precipitated by hypertensive emergency. Also, consider worsening coronary ischemia given the fact that left ventricular function is severely reduced at this time. 2. Hypertensive emergency: Improved. 3. Uncontrolled Diabetes. 4. Uncontrolled hyperlipidemia. 5. Possible chronic kidney disease. 6. Possible sleep apnea. 7. Obesity. 8. Peripheral vascular disease. PLAN: Aggressive therapy for hypertension and systolic heart failure. Consider coronary angiography given the severity of her LV her dysfunction. Encourage strict diet. Blood pressure checks and weight checks at home. Thank you for this consultation. We will follow the patient. TID: [id number] RECEIPT: [id number] STEPHY/PEDRO
[2021-02-09] MEDS: HEPARIN 5,000 UNIT/1 ML VIAL SUB-Q SCH ×3 (05:10→22:38)
[2021-02-09] MEDS: hydrALAZINE 25 MG TAB PO SCH ×3 (05:10→22:38)
[2021-02-09] MEDS: FUROSEMIDE 40 MG/4 ML INJ IV SCH ×2 (05:10→17:33)
[2021-02-09 06:00] LABS: Basophils # (Auto) 0.1 K/mm3 (0.0-0.1); Basophils % (Auto) 1.1 % (0.0-1.8); Eosinophils # (Auto) 0.4 K/mm3 (0.0-0.4); Eosinophils % (Auto) 4.5 % (0.0-4.3); Hematocrit 34.1 % (30.3-42.9); Hemoglobin 11.6 gm/dl (10.1-14.3); Lymphocytes # (Auto) 3.1 K/mm3 (1.2-5.4); Lymphocytes % (Auto) 39.9 % (13.4-35.0); Mean Corpuscular HGB Conc 34 % (30-34); Mean Corpuscular Volume 90 fl (79-97); Monocytes # (Auto) 0.4 K/mm3 (0.0-0.8); Monocytes % (Auto) 4.7 % (0.0-7.3); Platelet Count 156 K/mm3 (140-440); Red Blood Count 3.78 M/mm3 (3.65-5.03); Red Cell Distribution Width 13.8 % (13.2-15.2)
[2021-02-09 06:03] LABS: INR 0.97 (0.87-1.13)
[2021-02-09 06:21] LABS: Calcium 8.1 mg/dL (8.4-10.2)
[2021-02-09] MEDS: INSULIN LISPRO 100 UNIT/ML SUB-Q SCH ×4 (07:50→22:37)
[2021-02-09] MEDS: ASPIRIN 325 MG TAB PO SCH (09:24)
[2021-02-09] MEDS: INSULIN NPH/REGULAR 70/30 INJ SUB-Q SCH ×2 (09:24→22:37)
--- NOTE | 2021-02-09 10:20 | Electrocardiograph Report ---
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
--- NOTE | 2021-02-09 12:08 | Progress Note ---
Assessment and Plan - Patient Problems (1) Acute exacerbation of CHF (congestive heart failure) Current Visit: Yes Status: Acute Plan to address problem: Echocardiogram for LVEF assessment. Continue medical therapy for CHF exacerbation. Obtain prior records from [facility] for cardiac review. Subjective Date of service: 02/09/21 Interval history: Patient is resting in bed comfortably. No distress noted. Blood pressure is controlled. Objective Vital Signs Temp Pulse Resp BP BP Pulse Ox 02/09/21 07:59 98.3 F 69 18 107/33 57 L 02/09/21 03:37 97.9 F 77 18 156/60 99 02/09/21 00:00 70 02/08/21 22:50 98.7 F 77 18 129/49 99 02/08/21 20:19 134/59 02/08/21 19:19 99.2 F 84 18 134/42 97 02/08/21 16:23 98.9 F 83 20 166/60 99 02/08/21 15:10 78 02/08/21 13:21 86 173/60 - Physical Examination General: No Apparent Distress HEENT: Positive: PERRL Neck: Positive: trachea midline Cardiac: Positive: Reg Rate and Rhythm Lungs: Positive: Decreased Breath Sounds Extremities: Present: Other (left BKA) - Labs and Meds Coagulation 02/09/21 Range/Units 05:26 PT 12.8 (12.2-14.9) Sec. INR 0.97 (0.87-1.13) CBC 02/09/21 Range/Units 05:26 WBC 7.7 (4.5-11.0) K/mm3 RBC 3.78 (3.65-5.03) M/mm3 Hgb 11.6 (10.1-14.3) gm/dl Hct 34.1 (30.3-42.9) % Plt Count 156 (140-440) K/mm3 Lymph # (Auto) 3.1 (1.2-5.4) K/mm3 [place] # (Auto) 0.4 (0.0-0.8) K/mm3 Eos # (Auto) 0.4 (0.0-0.4) K/mm3 Baso # (Auto) 0.1 (0.0-0.1) K/mm3 Comprehensive Metabolic Panel 02/09/21 Range/Units 05:26 Sodium 144 (137-145) mmol/L Potassium 4.0 (3.6-5.0) mmol/L Chloride 108.8 H (98-107) mmol/L Carbon Dioxide 25 (22-30) mmol/L BUN 38 H (7-17) mg/dL Creatinine 1.9 H (0.6-1.2) mg/dL Glucose 66 (65-100) mg/dL Calcium 8.1 L (8.4-10.2) mg/dL
--- NOTE | 2021-02-09 15:05 | Progress Note ---
Assessment and Plan == Acute exacerbation of CHF (congestive heart failure) Current Visit: Yes Status: Acute Plan to address problem: Patient admitted and placed on diuretics. Will monitor inputs and outputs and also monitor daily weights. We will schedule patient for echocardiogram. Consult placed to cardiology for evaluation. -- Acute hypoxic respiratory failure Current Visit: Yes Status: Acute Plan to address problem: Secondary to CHF exacerbation. She was initially on BiPAP. Patient currently on oxygen by nasal cannula. We will keep oxygen saturation greater equal to 94%. -- HTN (hypertension) Current Visit: No Status: Acute Plan to address problem: Blood pressure initially elevated. Possibly secondary to noncompliance. Compliance encouraged. We will resume routine home medications once reconciled and monitor vital signs closely. -- T2DM (type 2 diabetes mellitus) Current Visit: No Status: Chronic Qualifiers: Diabetes mellitus complication status: with hyperglycemia Plan to address problem: We will monitor Accu-Cheks closely. Patient placed on sliding scale insulin. -- Elevated troponin Current Visit: Yes Status: Acute Plan to address problem: Possibly secondary to troponin leak and kidney disease. Patient has denied any chest pain. We will monitor troponin levels. Will await evaluation and recommendation from cardiology. -- Acute kidney injury superimposed on chronic kidney disease Current Visit: Yes Status: Acute Plan to address problem: Creatinine was 0.8 about 4 years ago. Now 1.8 Consult placed to nephrology for evaluation and recommendation. -- DVT prophylaxis Current Visit: No Status: Acute Plan to address problem: Patient placed on subcutaneous heparin. -- Full code status Current Visit: Yes Status: Acute Plan to address problem: Patient is full code. Brief history: 65-year-old -[place] female with known history of hypertension, coronary artery disease with stent placement in the past, CHF, diabetes mellitus with left below-knee amputation presents to the emergency room via EMS for evaluation of respiratory distress. By EMS oxygen saturation was about 73% on room air initially and blood pressure was about 240/150 mmHg. Work-up in the emergency room showed BNP of 2035, Cr 1.8, and troponin of 0.050> 0.078, abnormal lipid profile Chest x-ray was suspicious for bilateral pulmonary edema. Patient was admitted with CHF exacerbation and hypoxic respiratory failure requiring BiPAP on admission Daily clinical course: 02/10/21: Patient admitted with CHF protocol. Patient remains on 4 L O2, continue IV diuresis. Follow cardiology recommendation. Monitor daily weight ins and outs. Get medical records from the [facility]. Subjective Date of service: 02/09/21 Interval history: Patient seen and examined. Medical records and medication list reviewed. No acute event overnight noted by the RN. Patient denies any chest pain but complains of difficulty breathing even on resting. Patient is tolerating diet. Discussed plan of care at bedside with patient. Objective - Exam Narrative Exam: General appearance: Present: no acute distress, well-nourished - EENT Eyes: Present: PERRL, EOM intact. Absent: scleral icterus ENT: hearing intact, clear oral mucosa, dentition normal - Neck Neck: Present: supple, normal ROM - Respiratory Respiratory effort: normal Respiratory: bilateral: rales - Cardiovascular Rhythm: regular Heart Sounds: Present: S1 & S2. Absent: gallop, systolic murmur, diastolic murmur, rub, click - Extremities Extremities: no ischemia, pulses intact, pulses symmetrical, No edema, normal temperature, normal color, Full ROM, abnormal (Left below-knee amputation.) Peripheral Pulses: within normal limits - Abdominal General gastrointestinal: Present: soft, non-tender, non-distended, normal bowel sounds. Absent: mass - Integumentary Integumentary: Present: clear, warm, dry. Absent: rash - Musculoskeletal Musculoskeletal: strength equal bilaterally - Psychiatric Psychiatric: appropriate mood/affect, intact judgment & insight, memory intact, cooperative - Neurologic Neurologic: CNII-XII intact, no focal deficits, moves all extremities - Constitutional Vitals: Vital Signs - 12hr 02/09/21 02/09/21 02/09/21 03:37 07:59 13:25 Temperature 97.9 F 98.3 F 98.2 F Pulse Rate 77 69 80 Respiratory 18 18 20 Rate Blood Pressure 156/60 107/33 Blood Pressure 156/72 [Left] O2 Sat by Pulse 99 57 L Oximetry - Labs CBC & Chem 7: 02/11/21 05:51 02/11/21 05:51 Labs: Abnormal lab results 02/08/21 02/08/21 02/08/21 Range/Units 14:31 16:24 17:55 Lymph % (Auto) (13.4-35.0) % Eos % (Auto) (0.0-4.3) % Chloride (98-107) mmol/L BUN (7-17) mg/dL Creatinine (0.6-1.2) mg/dL POC Glucose 107 H (70-105) mg/dL Calcium (8.4-10.2) mg/dL Troponin T 0.072 H 0.060 H (0.00-0.029) ng/mL 02/08/21 02/09/21 02/09/21 Range/Units 20:49 00:06 05:26 Lymph % (Auto) 39.9 H (13.4-35.0) % Eos % (Auto) 4.5 H (0.0-4.3) % Chloride (98-107) mmol/L BUN (7-17) mg/dL Creatinine (0.6-1.2) mg/dL POC Glucose 183 H (70-105) mg/dL Calcium (8.4-10.2) mg/dL Troponin T 0.053 H (0.00-0.029) ng/mL 02/09/21 02/09/21 02/09/21 Range/Units 05:26 05:26 12:03 Lymph % (Auto) (13.4-35.0) % Eos % (Auto) (0.0-4.3) % Chloride 108.8 H (98-107) mmol/L BUN 38 H (7-17) mg/dL Creatinine 1.9 H (0.6-1.2) mg/dL POC Glucose 119 H (70-105) mg/dL Calcium 8.1 L (8.4-10.2) mg/dL Troponin T 0.057 H (0.00-0.029) ng/mL HEART Score - HEART Score Troponin: Troponin T 0.057 ng/mL (0.00-0.029) H 02/09/21 05:26
[2021-02-09] MEDS: CYCLOBENZAPRINE 10 MG TAB PO SCH (22:38)
[2021-02-10] MEDS: hydrALAZINE 25 MG TAB PO SCH ×3 (06:39→22:05)
[2021-02-10] MEDS: HEPARIN 5,000 UNIT/1 ML VIAL SUB-Q SCH ×3 (06:39→22:05)
[2021-02-10] MEDS: FUROSEMIDE 40 MG/4 ML INJ IV SCH ×2 (06:39→17:48)
[2021-02-10] MEDS: INSULIN LISPRO 100 UNIT/ML SUB-Q SCH ×4 (09:10→22:03)
[2021-02-10] MEDS: ASPIRIN 325 MG TAB PO SCH (09:13)
[2021-02-10] MEDS: INSULIN NPH/REGULAR 70/30 INJ SUB-Q SCH ×2 (09:13→22:03)
[2021-02-10] MEDS: carvediloL 6.25 MG TAB PO SCH ×2 (09:44→22:05)
--- NOTE | 2021-02-10 11:46 | Progress Note ---
Assessment and Plan - Patient Problems (1) Acute exacerbation of CHF (congestive heart failure) Current Visit: Yes Status: Acute Plan to address problem: Echocardiogram this presentations shows decrease left ventricular systolic function, EF 35-40%. 04/2019 echo at [facility] [place] - LVEF 40-45% 04/2019 MPI at [facility] [place] - no ischemia Recommendations: Advised dietary restrictions. Continue medical management of systolic heart failure. Will proceed with a cardiac cath for further ischemic assessment. Subjective Date of service: 02/10/21 Interval history: Patient is resting in bed comfortably. No distress noted. Reports she is diuresing well. Blood pressure is controlled. Objective Vital Signs Temp Pulse Resp BP BP Pulse Ox 02/10/21 08:20 98.7 F 76 18 143/68 100 02/10/21 07:31 97.6 F 79 18 142/71 98 02/10/21 06:39 135/50 02/10/21 04:10 98.3 F 86 18 135/50 98 02/09/21 23:07 98.2 F 81 18 162/74 99 02/09/21 22:38 90 175/61 02/09/21 19:16 98.3 F 90 16 175/61 96 02/09/21 16:40 98.6 F 80 18 174/46 98 02/09/21 13:25 98.2 F 80 20 156/72 - Physical Examination General: No Apparent Distress HEENT: Positive: PERRL Neck: Positive: trachea midline Cardiac: Positive: Reg Rate and Rhythm Lungs: Positive: Decreased Breath Sounds Neuro: Positive: Grossly Intact Extremities: Present: Other (left BKA)
--- NOTE | 2021-02-10 12:30 | Progress Note ---
Assessment and Plan == Acute exacerbation of CHF (congestive heart failure) Current Visit: Yes Status: Acute Plan to address problem: Patient admitted and placed on diuretics. Will monitor inputs and outputs and also monitor daily weights. We will schedule patient for echocardiogram. Consult placed to cardiology for evaluation. -- Acute hypoxic respiratory failure Current Visit: Yes Status: Acute Plan to address problem: Secondary to CHF exacerbation. She was initially on BiPAP. Patient currently on oxygen by nasal cannula. We will keep oxygen saturation greater equal to 94%. -- HTN (hypertension) Current Visit: No Status: Acute Plan to address problem: Blood pressure initially elevated. Possibly secondary to noncompliance. Compliance encouraged. We will resume routine home medications once reconciled and monitor vital signs closely. -- T2DM (type 2 diabetes mellitus) Current Visit: No Status: Chronic Qualifiers: Diabetes mellitus complication status: with hyperglycemia Plan to address problem: We will monitor Accu-Cheks closely. Patient placed on sliding scale insulin. -- Elevated troponin Current Visit: Yes Status: Acute Plan to address problem: Possibly secondary to troponin leak and kidney disease. Patient has denied any chest pain. We will monitor troponin levels. Will await evaluation and recommendation from cardiology. -- Acute kidney injury superimposed on chronic kidney disease Current Visit: Yes Status: Acute Plan to address problem: Creatinine was 0.8 about 4 years ago. Now 1.8 Consult placed to nephrology for evaluation and recommendation. -- DVT prophylaxis Current Visit: No Status: Acute Plan to address problem: Patient placed on subcutaneous heparin. -- Full code status Current Visit: Yes Status: Acute Plan to address problem: Patient is full code. Brief history: 65-year-old -[place] female with known history of hypertension, coronary artery disease with stent placement in the past, CHF, diabetes mellitus with left below-knee amputation presents to the emergency room via EMS for evaluation of respiratory distress. By EMS oxygen saturation was about 73% on room air initially and blood pressure was about 240/150 mmHg. Work-up in the emergency room showed BNP of 2035, Cr 1.8, and troponin of 0.050> 0.078, abnormal lipid profile Chest x-ray was suspicious for bilateral pulmonary edema. Patient was admitted with CHF exacerbation and hypoxic respiratory failure requiring BiPAP on admission Daily clinical course: 02/09/21: Patient admitted with CHF protocol. Patient remains on 4 L O2, continue IV diuresis. Follow cardiology recommendation. Monitor daily weight ins and outs. Get medical records from the [facility]. 02/10: Continue medical management of systolic heart failure. cardiology Will proceed with a cardiac cath for further ischemic assessment. Follow nephrology recommendation for KAE. Subjective Date of service: 02/10/21 Interval history: Patient seen and examined. Medical records and medication list reviewed. No acute event overnight noted by the RN. Patient denies any chest pain but complains of difficulty breathing even on res ting. Patient is tolerating diet. Discussed plan of care at bedside with patient. Objective - Exam Narrative Exam: General appearance: Present: no acute distress, well-nourished - EENT Eyes: Present: PERRL, EOM intact. Absent: scleral icterus ENT: hearing intact, clear oral mucosa, dentition normal - Neck Neck: Present: supple, normal ROM - Respiratory Respiratory effort: normal Respiratory: bilateral: rales - Cardiovascular Rhythm: regular Heart Sounds: Present: S1 & S2. Absent: gallop, systolic murmur, diastolic murmur, rub, click - Extremities Extremities: no ischemia, pulses intact, pulses symmetrical, No edema, normal temperature, normal color, Full ROM, abnormal (Left below-knee amputation.) Peripheral Pulses: within normal limits - Abdominal General gastrointestinal: Present: soft, non-tender, non-distended, normal bowel sounds. Absent: mass - Integumentary Integumentary: Present: clear, warm, dry. Absent: rash - Musculoskeletal Musculoskeletal: strength equal bilaterally - Psychiatric Psychiatric: appropriate mood/affect, intact judgment & insight, memory intact, cooperative - Neurologic Neurologic: CNII-XII intact, no focal deficits, moves all extremities - Constitutional Vitals: Vital Signs - 12hr 02/10/21 02/10/21 02/10/21 04:10 06:39 07:31 Temperature 98.3 F 97.6 F Pulse Rate 86 79 Respiratory 18 18 Rate Blood Pressure 135/50 135/50 142/71 O2 Sat by Pulse 98 98 Oximetry 02/10/21 08:20 Temperature 98.7 F Pulse Rate 76 Respiratory 18 Rate Blood Pressure 143/68 O2 Sat by Pulse 100 Oximetry - Labs CBC & Chem 7: 02/11/21 05:51 02/11/21 05:51 Labs: Abnormal lab results 02/09/21 02/09/21 Range/Units 16:49 21:11 POC Glucose 113 H 203 H (70-105) mg/dL HEART Score - HEART Score Troponin: Troponin T 0.057 ng/mL (0.00-0.029) H 02/09/21 05:26
--- NOTE | 2021-02-10 13:38 | Consultation ---
History of Present Illness - Reason for Consult Consult date: 02/10/21 acute renal failure - History of Present Illness This is a 65-year-old -[place] female with history of hypertension, coronary artery disease, CHF, diabetes mellitus, left below-knee amputation who presented to the E.R via EMS for evaluation of shortness of breath. On evaluation CXR showed pulmonary edema. Pertinent labs revealed an elevated serum creatinine level 1.9. In April 2017 her serum creatinine was 1.7 and 1.8. We are being consulted for management of this patient's Acute Renal Failure on CKD. Past History Past Medical History: CAD (With stent placement in 2005), diabetes, hypertension Past Surgical History: PTCA, Other (Left middle finger bacterial infection, left BKA) Social history: no significant social history Family history: no significant family history Medications and Allergies Allergies Allergy/AdvReac Type Severity Reaction Status Date / Time tree and shrub pollen Allergy Intermediate Unknown Verified 02/08/21 21:03 Home Medications Medication Instructions Recorded Confirmed Last Taken Type AtorvaSTATin 20 mg PO QHS #30 tablet 04/28/17 02/09/21 06/12/17 Rx Furosemide [Furosemide ORAL LIQ] 40 mg PO QDAY #30 ml 04/28/17 02/09/21 06/12/17 Rx Insulin NPH/Regular [NovoLIN 70/30] 8 unit SQ BID #1 vial 04/28/17 02/09/21 06/14/17 22:00 Rx 8 UNITS Isosorbide Dinitrate [Isordil] 20 mg PO Q8HR #90 tablet 04/28/17 02/09/21 06/12/17 Rx Potassium Chloride 20 meq PO QDAY #30 packet 04/28/17 02/09/21 Unknown Rx amLODIPine 10 mg PO QDAY #30 tablet 04/28/17 02/09/21 06/12/17 Rx carvediloL [Coreg] 3.125 mg PO BID #60 tablet 04/28/17 02/09/21 06/15/17 10:30 Rx hydrALAZINE [Apresoline TAB] 50 mg PO Q8HR #90 tablet 04/28/17 02/09/21 06/12/17 Rx HYDROcodone/APAP 5-325 [[place] 1 each PO Q4HR PRN #35 tablet 06/15/17 02/09/21 Unknown Rx 5-325 mg TAB] traMADoL [Ultram] 50 mg PO Q4HR PRN 06/15/17 02/09/21 06/13/17 History Ibuprofen [Motrin] 600 mg PO Q8H PRN #30 tablet 07/27/17 02/09/21 Unknown Rx Cyclobenzaprine HCl [Flexeril 5 MG 5 mg PO QHS #10 tab 01/13/19 02/09/21 Unknown Rx TAB] Active Meds: Active Medications Acetaminophen (Acetaminophen 325 Mg Tab) 650 mg PO Q4H PRN PRN Reason: Pain MILD(1-3)/Fever >100.5/[place] Hydrocodone Bitart/Acetaminophen (Hydrocodone/Acetaminophen 5-325 Mg Tab) 1 each PO Q4H PRN PRN Reason: Pain, Moderate (4-6) Aspirin (Aspirin 325 Mg Tab) 325 mg PO QDAY [facility] Last Admin: 02/10/21 09:13 Dose: 325 mg Documented by: Atorvastatin Calcium (Atorvastatin 40 Mg Tab) 40 mg PO QHS [facility] Last Admin: 02/09/21 22:38 Dose: 40 mg Documented by: Carvedilol (Carvedilol 6.25 Mg Tab) 6.25 mg PO BID [facility] Last Admin: 02/10/21 09:44 Dose: 6.25 mg Documented by: Cyclobenzaprine HCl (Cyclobenzaprine 10 Mg Tab) 5 mg PO QHS [facility] Last Admin: 02/09/21 22:38 Dose: 5 mg Documented by: Dextrose (Dextrose 50% In Water (25gm) 50 Ml Syringe) 0 ml IV Q30MIN PRN; Protocol PRN Reason: Hypoglycemia Furosemide (Furosemide 40 Mg/4 Ml Inj) 40 mg IV BID@0600,1800 [facility] Last Admin: 02/10/21 06:39 Dose: 40 mg Documented by: Heparin Sodium (Porcine) (Heparin 5,000 Unit/1 Ml Vial) 5,000 unit SUB-Q Q8HR [facility] Last Admin: 02/10/21 06:39 Dose: 5,000 unit Documented by: Hydralazine HCl (Hydralazine 25 Mg Tab) 25 mg PO Q8HR [facility] Last Admin: 02/10/21 06:39 Dose: 25 mg Documented by: Insulin Human Isoph/Insulin Regular (Insulin Nph/Regular 70/30 Inj) 8 unit SUB- Q BID [facility] Last Admin: 02/10/21 09:13 Dose: 8 unit Documented by: Insulin Human Lispro (Insulin Lispro 100 Unit/Ml) 0 unit SUB-Q ACHS [facility]; Protocol Last Admin: 02/10/21 13:02 Dose: Not Given Documented by: Magnesium Hydroxide (Magnesium Hydroxide (Mom) Oral Liqd Udc) 30 ml PO Q4H PRN PRN Reason: Constipation Morphine Sulfate (Morphine 2 Mg/1 Ml Inj) 2 mg IV Q4H PRN PRN Reason: Pain, Moderate (4-6) Ondansetron HCl (Ondansetron 4 Mg/2 Ml Inj) 4 mg IV Q8H PRN PRN Reason: Nausea And Vomiting Sodium Chloride (Sodium Chloride 0.9% 10 Ml Flush Syringe) 10 ml IV BID [facility] Last Admin: 02/10/21 09:13 Dose: 10 ml Documented by: Sodium Chloride (Sodium Chloride 0.9% 10 Ml Flush Syringe) 10 ml IV PRN PRN PRN Reason: LINE FLUSH Last Admin: 02/10/21 06:39 Dose: 10 ml Documented by: Review of Systems Constitutional: fatigue, weakness, no weight loss, no fever, no chills, no sweats Ears, nose, mouth and throat: no ear pain, no ear discharge, no tinnitis, no decreased hearing, no nose pain, no nasal congestion, no nasal discharge Breasts: deferred Cardiovascular: chest pain, shortness of breath, no orthopnea, no palpitations, no rapid/irregular heart beat, no edema Respiratory: shortness of breath, no cough, no cough with sputum, no excessive sputum, no hemoptysis Gastrointestinal: no abdominal pain, no nausea, no vomiting, no diarrhea, no constipation, no change in bowel habits Genitourinary Female: no dyspareunia, no dysmenorrhea, no pelvic pain, no flank pain, no menorrhagia, no dysuria Rectal: no pain, no incontinence, no bleeding Musculoskeletal: no neck stiffness, no neck pain, no shooting arm pain, no arm numbness/tingling, no low back pain Integumentary: no rash, no pruritis, no redness, no sores Neurological: no head injury, no transient paralysis, no paralysis, no parathesias, no numbness, no tingling Psychiatric: no anxiety, no memory loss, no change in sleep habits, no sleep disturbances, no insomnia, no hypersomnia Endocrine: no cold intolerance, no heat intolerance, no polyphagia, no excessive thirst, no polydipsia, no polyuria Exam - Vital Signs Vital signs: Vital Signs Pulse Resp BP Pulse Ox 104 H 23 192/106 96 02/08/21 03:17 02/08/21 03:17 02/08/21 03:17 02/08/21 03:17 - General Appearance General appearance: well-developed, appears stated age, obese EENT: ATNC, PERRL, hearing intact, vision intact Neck: Present: neck supple, trachea midline Respiratory: Decreased Breath Sounds Heart: S1S2 Gastrointestinal: Present: normoactive bowel sounds Integumentary: warm and dry Neurologic: alert and oriented x3 Musculoskeletal: Present: other (Has mild edema to right leg and has left BKA-wears prosthetic limb) Results - Lab Results 02/09/21 05:26 02/09/21 05:26 Most recent lab results Calcium 8.1 mg/dL (8.4-10.2) L 02/09/21 05:26 Assessment and Plan Assessment: (Principal Problem) Acute exacerbation of CHF Pulmonary Edema Acute Renal Failure on CKD Hypertension Diabetes Mellitus Plan: Renal labs reviewed. Serum creatinine 1.9 today, has good UOP of 1600 ml. In 04/2017 serum creatinine was 1.7 and 1.8 Obtain renal ultrasound Obtain urine lytes, protein and eosinophils CHF-on Lasix 40 mg IV BID Avoid nephrotoxic agents Renally dose medications Monitor I/O's daily Obtain daily weights Continue to monitor
[2021-02-10 14:26] LABS: Calcium 8.4 mg/dL (8.4-10.2)
[2021-02-10 18:25] LABS: Creatinine,Urine 87.1 mg/dL (0.1-20.0)
[2021-02-10 18:47] LABS: Protein/Creatinine Ratio,Urine 9.32
[2021-02-10] MEDS: CYCLOBENZAPRINE 10 MG TAB PO SCH (22:04)
[2021-02-11] MEDS: hydrALAZINE 25 MG TAB PO SCH ×3 (05:16→21:55)
[2021-02-11] MEDS: HEPARIN 5,000 UNIT/1 ML VIAL SUB-Q SCH ×3 (05:17→21:57)
[2021-02-11] MEDS: FUROSEMIDE 40 MG/4 ML INJ IV SCH (05:17)
[2021-02-11 06:11] LABS: Basophils # (Auto) 0.1 K/mm3 (0.0-0.1); Basophils % (Auto) 1.5 % (0.0-1.8); Eosinophils # (Auto) 0.4 K/mm3 (0.0-0.4); Eosinophils % (Auto) 5.4 % (0.0-4.3); Hematocrit 33.6 % (30.3-42.9); Hemoglobin 11.1 gm/dl (10.1-14.3); Lymphocytes # (Auto) 2.9 K/mm3 (1.2-5.4); Lymphocytes % (Auto) 37.5 % (13.4-35.0); Mean Corpuscular HGB Conc 33 % (30-34); Mean Corpuscular Volume 89 fl (79-97); Monocytes # (Auto) 0.3 K/mm3 (0.0-0.8); Monocytes % (Auto) 4.4 % (0.0-7.3); Platelet Count 170 K/mm3 (140-440); Red Blood Count 3.77 M/mm3 (3.65-5.03); Red Cell Distribution Width 13.7 % (13.2-15.2)
[2021-02-11 06:26] LABS: INR 0.91 (0.87-1.13)
[2021-02-11 06:39] LABS: Calcium 7.9 mg/dL (8.4-10.2)
--- NOTE | 2021-02-11 09:19 | Ultrasound Report ---
ULTRASOUND RENAL INDICATION: renal failure. COMPARISON: No relevant prior imaging study available. FINDINGS: RIGHT KIDNEY: Size: 11 cm. Echogenicity: Normal. Cortical thickness: 1.6 cm. Hydronephrosis: None. Cyst or mass: None. Stones: None. LEFT KIDNEY: Size: 10.3 cm. Echogenicity: Normal. Cortical thickness: 1.4 cm. Hydronephrosis: None. Cyst or mass: None. Stones: None. Urinary Bladder: Moderate distention.. Free Fluid: None. Additional Findings: None. IMPRESSION: Unremarkable renal ultrasound. Signer Name: Miko Guaman MD Signed: 02/11/2021 9:14 AM Workstation Name: [id number]
[2021-02-11] MEDS: ASPIRIN 325 MG TAB PO SCH (09:22)
[2021-02-11] MEDS: INSULIN NPH/REGULAR 70/30 INJ SUB-Q SCH ×2 (09:23→21:57)
[2021-02-11] MEDS ORDERED: SODIUM CHLORIDE 0.9% 1000 ML 1,000 ML IV SCH (09:30)
--- NOTE | 2021-02-11 10:49 | Progress Note ---
Assessment and Plan - Patient Problems (1) Acute exacerbation of CHF (congestive heart failure) Current Visit: Yes Status: Acute Plan to address problem: Patient has recurrent fluid overload and congestive heart failure, in the setting of a moderate severity cardiomyopathy. We have recommended diagnostic coronary angiography to assess for coronary artery disease. In preparation for cardiac catheterization, we will discontinue furosemide, begin low-dose normal saline hydration at 50 cc/h, and plan for coronary angiography tomorrow morning with a minimal contrast load using isoosmolar contrast. Risks and benefits of the procedure including elevated risk of contrast nephropathy extensively discussed with the patient, who consents to proceed. Subjective Date of service: 02/11/21 Interval history: Patient has no new complaints, looks and feels well, no chest pain, shortness of breath has resolved. There is no edema. The cardiac catheterization planned for today has been canceled, due to persistence of her chronic creatinine elevation, currently 1.8-1.9. Her previous baseline was 1.6-1.7. Objective Vital Signs Temp Pulse Resp BP BP Pulse Ox 02/11/21 05:16 78 117/37 02/11/21 03:25 98.4 F 78 18 117/37 100 02/10/21 23:09 98.0 F 85 18 172/75 97 02/10/21 22:05 82 166/43 02/10/21 22:00 100 02/10/21 19:18 98.7 F 82 18 166/43 100 02/10/21 16:40 98 F 78 20 143/77 02/10/21 12:05 97.7 F 76 20 147/73 - Physical Examination General: Appears Well, No Apparent Distress HEENT: Positive: PERRL Neck: Positive: neck supple, trachea midline Cardiac: Positive: Reg Rate and Rhythm Lungs: Positive: clear to auscultation Neuro: Positive: Grossly Intact Abdomen: Positive: Soft Skin: Positive: Clear Extremities: Present: Other (left BKA). Absent: edema - Labs and Meds Coagulation 02/11/21 Range/Units 05:51 PT 12.2 (12.2-14.9) Sec. INR 0.91 (0.87-1.13) CBC 02/11/21 Range/Units 05:51 WBC 7.6 (4.5-11.0) K/mm3 RBC 3.77 (3.65-5.03) M/mm3 Hgb 11.1 (10.1-14.3) gm/dl Hct 33.6 (30.3-42.9) % Plt Count 170 (140-440) K/mm3 Lymph # (Auto) 2.9 (1.2-5.4) K/mm3 [place] # (Auto) 0.3 (0.0-0.8) K/mm3 Eos # (Auto) 0.4 (0.0-0.4) K/mm3 Baso # (Auto) 0.1 (0.0-0.1) K/mm3 Comprehensive Metabolic Panel 02/10/21 02/11/21 Range/Units 13:13 05:51 Sodium 140 141 (137-145) mmol/L Potassium 4.4 4.2 (3.6-5.0) mmol/L Chloride 106.3 107.2 H (98-107) mmol/L Carbon Dioxide 25 26 (22-30) mmol/L BUN 44 H 47 H (7-17) mg/dL Creatinine 1.9 H 1.9 H (0.6-1.2) mg/dL Glucose 132 H 126 H (65-100) mg/dL Calcium 8.4 7.9 L (8.4-10.2) mg/dL
--- NOTE | 2021-02-11 11:22 | Progress Note ---
Assessment and Plan (Principal Problem) Acute exacerbation of CHF Pulmonary Edema Acute Renal Failure on CKD Hypertension Diabetes Mellitus Plan: stable Cr, good UOP In 04/2017 serum creatinine was 1.7 and 1.8 renal US -ve for obstruction nioted to have proteinuria, likely 2/2 DM CHF-lasix was held by cardiology for possible LHC tomorrow Avoid nephrotoxic agents Renally dose medications Monitor I/O's daily Obtain daily weights Continue to monitor Subjective Date of service: 02/11/21 Principal diagnosis: renal failure Interval history: swelling and SOB is better Objective - Vital Signs Vital signs: Vital Signs - 12hr 02/11/21 02/11/21 03:25 05:16 Temperature 98.4 F Pulse Rate 78 78 Respiratory 18 Rate Blood Pressure 117/37 117/37 O2 Sat by Pulse 100 Oximetry - General Appearance General appearance: well-developed, well-nourished EENT: ATNC, PERRL, mucous membranes moist Neck: no JVD, no carotid bruit Respiratory: Present: Decreased Breath Sounds Cardiology: regular, S1S2 Gastrointestinal: normoactive bowel sounds, no tenderness, no distended Integumentary: no rash, warm and dry Neurologic: no focal deficit, no asterixis, alert and oriented x3 Musculoskeletal: other (trace pitting edema in RLE) Psychiatric: mood/affect appropriate, cooperative - Lab 02/11/21 05:51 02/11/21 05:51 Most recent lab results Calcium 7.9 mg/dL (8.4-10.2) L 02/11/21 05:51 Phosphorus 4.30 mg/dL (2.5-4.5) 02/11/21 05:51 Urine Creatinine 87.0 mg/dL (0.1-20.0) H 02/10/21 18:00 Urine Creatinine 87.1 mg/dL (0.1-20.0) H 02/10/21 18:00 Urine Sodium 61 mmol/L 02/10/21 18:00 Urine Total Protein 809 mg/dL (5-11.8) H 02/10/21 18:00 Urine Total Protein 811 mg/dL (5-11.8) H 02/10/21 18:00 Medications & Allergies - Medications Allergies/Adverse Reactions: Allergies tree and shrub pollen Allergy (Intermediate, Verified 02/08/21 21:03) Unknown ITCHY NOSE, EYES, AND EARS Home Medications: Home Medications Medication Instructions Recorded Confirmed Last Taken Type AtorvaSTATin 20 mg PO QHS #30 tablet 04/28/17 02/09/21 06/12/17 Rx Furosemide [Furosemide ORAL LIQ] 40 mg PO QDAY #30 ml 04/28/17 02/09/21 06/12/17 Rx Insulin NPH/Regular [NovoLIN 70/30] 8 unit SQ BID #1 vial 04/28/17 02/09/21 06/14/17 22:00 Rx 8 UNITS Isosorbide Dinitrate [Isordil] 20 mg PO Q8HR #90 tablet 04/28/17 02/09/21 06/12/17 Rx Potassium Chloride 20 meq PO QDAY #30 packet 04/28/17 02/09/21 Unknown Rx amLODIPine 10 mg PO QDAY #30 tablet 04/28/17 02/09/21 06/12/17 Rx carvediloL [Coreg] 3.125 mg PO BID #60 tablet 04/28/17 02/09/21 06/15/17 10:30 Rx hydrALAZINE [Apresoline TAB] 50 mg PO Q8HR #90 tablet 04/28/17 02/09/21 06/12/17 Rx HYDROcodone/APAP 5-325 [[place] 1 each PO Q4HR PRN #35 tablet 06/15/17 02/09/21 Unknown Rx 5-325 mg TAB] traMADoL [Ultram] 50 mg PO Q4HR PRN 06/15/17 02/09/21 06/13/17 History Ibuprofen [Motrin] 600 mg PO Q8H PRN #30 tablet 07/27/17 02/09/21 Unknown Rx Cyclobenzaprine HCl [Flexeril 5 MG 5 mg PO QHS #10 tab 01/13/19 02/09/21 Unknown Rx TAB] Active Medications: Generic Name Dose Route Start Last Admin Trade Name Freq PRN Reason Stop Dose Admin Acetaminophen 650 mg 02/08/21 04:50 Acetaminophen 325 Mg Tab PO Q4H PRN Pain MILD(1-3)/Fever >100.5/[place] Hydrocodone Bitart/Acetaminophen 1 each 02/08/21 12:00 Hydrocodone/Acetaminophen 5-325 Mg Tab PO Q4H PRN Pain, Moderate (4-6) Aspirin 325 mg 02/08/21 12:00 02/11/21 09:22 Aspirin 325 Mg Tab PO 325 mg QDAY [facility] Administration Atorvastatin Calcium 40 mg 02/08/21 22:00 02/10/21 22:04 Atorvastatin 40 Mg Tab PO 40 mg QHS [facility] Administration Carvedilol 6.25 mg 02/10/21 10:00 02/10/21 22:05 Carvedilol 6.25 Mg Tab PO 6.25 mg BID [facility] Administration Cyclobenzaprine HCl 5 mg 02/08/21 22:00 02/10/21 22:04 Cyclobenzaprine 10 Mg Tab PO 5 mg QHS [facility] Administration Dextrose 0 ml 02/08/21 04:50 Dextrose 50% In Water (25gm) 50 Ml Syringe IV Q30MIN PRN Hypoglycemia Protocol Heparin Sodium (Porcine) 5,000 unit 02/08/21 06:00 02/11/21 05:17 Heparin 5,000 Unit/1 Ml Vial SUB-Q 5,000 unit Q8HR [facility] Administration Hydralazine HCl 25 mg 02/08/21 14:00 02/11/21 05:16 Hydralazine 25 Mg Tab PO 25 mg Q8HR [facility] Administration Sodium Chloride 1,000 mls @ 50 mls/hr 02/11/21 09:30 Nacl 0.9% 1000 Ml IV 02/12/21 21:29 DIRECT [facility] Insulin Human Isoph/Insulin Regular 8 unit 02/08/21 13:00 02/11/21 09:23 Insulin Nph/Regular 70/30 Inj SUB-Q 8 unit BID [facility] Administration Insulin Human Lispro 0 unit 02/08/21 07:30 02/10/21 22:03 Insulin Lispro 100 Unit/Ml SUB-Q 2 unit ACHS [facility] Administration Protocol Magnesium Hydroxide 30 ml 02/08/21 04:50 Magnesium Hydroxide (Mom) Oral Liqd Udc PO Q4H PRN Constipation Morphine Sulfate 2 mg 02/08/21 04:50 Morphine 2 Mg/1 Ml Inj IV Q4H PRN Pain, Moderate (4-6) Ondansetron HCl 4 mg 02/08/21 04:50 Ondansetron 4 Mg/2 Ml Inj IV Q8H PRN Nausea And Vomiting Sodium Chloride 10 ml 02/08/21 10:00 02/10/21 22:23 Sodium Chloride 0.9% 10 Ml Flush Syringe IV 10 ml BID [facility] Administration Sodium Chloride 10 ml 02/08/21 04:50 02/10/21 06:39 Sodium Chloride 0.9% 10 Ml Flush Syringe IV 10 ml PRN PRN Administration LINE FLUSH
[2021-02-11] MEDS: INSULIN LISPRO 100 UNIT/ML SUB-Q SCH ×4 (13:50→21:57)
--- NOTE | 2021-02-11 14:09 | Progress Note ---
Assessment and Plan -- Acute exacerbation of CHF (congestive heart failure) Patient admitted and placed on diuretics. Will monitor inputs and outputs and also monitor daily weights. 2d echocardiogram showed EF of 35% Consult placed to cardiology for evaluation. Plan for cardiac cath tomorrow -- Acute hypoxic respiratory failure Secondary to CHF exacerbation. She was initially on BiPAP. Patient currently on oxygen by nasal cannula. We will keep oxygen saturation greater equal to 94%. -- HTN (hypertension), uncontrolled Blood pressure initially elevated. Possibly secondary to noncompliance. Compliance encouraged and monitor vital signs closely. Continue antihypertensives and adjust medications as needed -- T2DM (type 2 diabetes mellitus) We will monitor Accu-Cheks closely. Patient placed on sliding scale insulin. -- Elevated troponin/NSTEMI type II Possibly secondary to troponin leak and kidney disease. Patient has denied any chest pain. We will monitor troponin levels. Plan for cardiac cath by cardiology -- Acute kidney injury superimposed on chronic kidney disease Creatinine was 0.8 about 4 years ago. Now 1.8 Consult placed to nephrology for evaluation and recommendation. Follow BMP daily -- DVT prophylaxis Patient placed on subcutaneous heparin. -- Full code status Patient is full code. Brief history: 65-year-old -[place] female with known history of hypertension, coronary artery disease with stent placement in the past, CHF, diabetes mellitus with left below-knee amputation presents to the emergency room via EMS for evaluation of respiratory distress. By EMS oxygen saturation was about 73% on room air initially and blood pressure was about 240/150 mmHg. Work-up in the emergency room showed BNP of 2035, Cr 1.8, and troponin of 0.050> 0.078, abnormal lipid profile Chest x-ray was suspicious for bilateral pulmonary edema. Patient was admitted with CHF exacerbation and hypoxic respiratory failure requiring BiPAP on admission Daily clinical course: 02/09/21: Patient admitted with CHF protocol. Patient remains on 4 L O2, continue IV diuresis. Follow cardiology recommendation. Monitor daily weight ins and outs. Get medical records from the [facility]. 02/10: Continue medical management of systolic heart failure. cardiology Will proceed with a cardiac cath for further ischemic assessment. Follow nephrology recommendation for KAE. 02/11: cr remains 1.9, stop lasix and start low volume iv fluid to prepare for cardiac cath which postponded for tomorrow. follow BMP. Patient remains on 2 to 4 L nasal cannula O2. Subjective Date of service: 02/11/21 Principal diagnosis: renal failure Interval history: Patient seen and examined. Medical records and medication list reviewed. No acute event overnight noted by the RN. Patient denies any chest pain but complains of difficulty breathing even on resting. Patient is tolerating diet. Discussed plan of care at bedside with patient. Objective - Exam Narrative Exam: General appearance: Present: no acute distress, well-nourished - EENT Eyes: Present: PERRL, EOM intact. Absent: scleral icterus ENT: hearing intact, clear oral mucosa, dentition normal - Neck Neck: Present: supple, normal ROM - Respiratory Respiratory effort: normal Respiratory: bilateral: rales - Cardiovascular Rhythm: regular Heart Sounds: Present: S1 & S2. Absent: gallop, systolic murmur, diastolic murmur, rub, click - Extremities Extremities: no ischemia, pulses intact, pulses symmetrical, No edema, normal temperature, normal color, Full ROM, abnormal (Left below-knee amputation.) Peripheral Pulses: within normal limits - Abdominal General gastrointestinal: Present: soft, non-tender, non-distended, normal bowel sounds. Absent: mass - Integumentary Integumentary: Present: clear, warm, dry. Absent: rash - Musculoskeletal Musculoskeletal: strength equal bilaterally - Psychiatric Psychiatric: appropriate mood/affect, intact judgment & insight, memory intact, cooperative - Neurologic Neurologic: CNII-XII intact, no focal deficits, moves all extremities - Constitutional Vitals: Vital Signs - 12hr 02/11/21 02/11/21 02/11/21 03:25 05:16 12:05 Temperature 98.4 F 98.6 F Pulse Rate 78 78 Respiratory 18 18 Rate Blood Pressure 117/37 117/37 O2 Sat by Pulse 100 Oximetry 02/11/21 12:07 Temperature Pulse Rate 79 Respiratory Rate Blood Pressure 152/57 O2 Sat by Pulse 98 Oximetry - Labs CBC & Chem 7: 02/11/21 05:51 02/11/21 05:51 Labs: Abnormal lab results 02/10/21 02/10/21 02/10/21 Range/Units 08:28 12:03 13:13 Lymph % (Auto) (13.4-35.0) % Eos % (Auto) (0.0-4.3) % Chloride (98-107) mmol/L BUN 44 H (7-17) mg/dL Creatinine 1.9 H (0.6-1.2) mg/dL Glucose 132 H (65-100) mg/dL POC Glucose 143 H 159 H (70-105) mg/dL Calcium (8.4-10.2) mg/dL Urine Creatinine (0.1-20.0) mg/dL Urine Total Protein (5-11.8) mg/dL 02/10/21 02/10/21 02/10/21 Range/Units 16:41 18:00 18:00 Lymph % (Auto) (13.4-35.0) % Eos % (Auto) (0.0-4.3) % Chloride (98-107) mmol/L BUN (7-17) mg/dL Creatinine (0.6-1.2) mg/dL Glucose (65-100) mg/dL POC Glucose 160 H (70-105) mg/dL Calcium (8.4-10.2) mg/dL Urine Creatinine 87.0 H 87.1 H (0.1-20.0) mg/dL Urine Total Protein 811 H 809 H (5-11.8) mg/dL 02/10/21 02/11/21 02/11/21 Range/Units 20:50 05:51 05:51 Lymph % (Auto) 37.5 H (13.4-35.0) % Eos % (Auto) 5.4 H (0.0-4.3) % Chloride 107.2 H (98-107) mmol/L BUN 47 H (7-17) mg/dL Creatinine 1.9 H (0.6-1.2) mg/dL Glucose 126 H (65-100) mg/dL POC Glucose 155 H (70-105) mg/dL Calcium 7.9 L (8.4-10.2) mg/dL Urine Creatinine (0.1-20.0) mg/dL Urine Total Protein (5-11.8) mg/dL 02/11/21 02/11/21 02/11/21 Range/Units 06:14 09:12 12:15 Lymph % (Auto) (13.4-35.0) % Eos % (Auto) (0.0-4.3) % Chloride (98-107) mmol/L BUN (7-17) mg/dL Creatinine (0.6-1.2) mg/dL Glucose (65-100) mg/dL POC Glucose 123 H 122 H 148 H (70-105) mg/dL Calcium (8.4-10.2) mg/dL Urine Creatinine (0.1-20.0) mg/dL Urine Total Protein (5-11.8) mg/dL HEART Score - HEART Score Troponin: Troponin T 0.057 ng/mL (0.00-0.029) H 02/09/21 05:26
[2021-02-11] MEDS: carvediloL 6.25 MG TAB PO SCH (21:56)
[2021-02-11] MEDS: CYCLOBENZAPRINE 10 MG TAB PO SCH (21:56)
[2021-02-12 04:28] LABS: Basophils # (Auto) 0.1 K/mm3 (0.0-0.1); Basophils % (Auto) 1.7 % (0.0-1.8); Eosinophils # (Auto) 0.3 K/mm3 (0.0-0.4); Eosinophils % (Auto) 4.8 % (0.0-4.3); Hematocrit 31.5 % (30.3-42.9); Hemoglobin 10.7 gm/dl (10.1-14.3); Lymphocytes # (Auto) 2.2 K/mm3 (1.2-5.4); Lymphocytes % (Auto) 31.2 % (13.4-35.0); Mean Corpuscular HGB Conc 34 % (30-34); Mean Corpuscular Volume 89 fl (79-97); Monocytes # (Auto) 0.4 K/mm3 (0.0-0.8); Monocytes % (Auto) 6.1 % (0.0-7.3); Platelet Count 154 K/mm3 (140-440); Red Blood Count 3.55 M/mm3 (3.65-5.03)
[2021-02-12 04:35] LABS: INR 1.03 (0.87-1.13)
[2021-02-12 04:41] LABS: Calcium 7.8 mg/dL (8.4-10.2)
[2021-02-12] MEDS: hydrALAZINE 25 MG TAB PO SCH ×2 (05:52→14:22)
[2021-02-12] MEDS: HEPARIN 5,000 UNIT/1 ML VIAL SUB-Q SCH ×2 (05:53→14:22)
[2021-02-12] MEDS: ASPIRIN 325 MG TAB PO SCH ×2 (07:56→11:02)
[2021-02-12] MEDS ORDERED: HEPARIN/NS 5000 UNIT/500ML 1,000 ML IR ONE (08:18)
[2021-02-12] MEDS: INSULIN LISPRO 100 UNIT/ML SUB-Q SCH ×3 (08:18→17:04)
[2021-02-12] MEDS ORDERED: NITROGLYCERIN SYRINGE 3 ML ONE (08:19)
[2021-02-12] MEDS ORDERED: VERAPAMIL 5 MG/2 ML INJ ONE (08:19)
[2021-02-12] MEDS ORDERED: LIDOCAINE (2%) 20 MG/1 ML VIAL 20 ML MDV INFILTRATI ONE (08:19)
[2021-02-12] MEDS ORDERED: HEPARIN 10,000 UNITS/10 ML VIAL ONE (08:19)
[2021-02-12] MEDS ORDERED: MIDAZOLAM 2 MG/2 ML INJ ONE (08:50)
[2021-02-12] MEDS ORDERED: fentaNYL 100 MCG/2 ML INJ ONE (08:50)
[2021-02-12] MEDS ORDERED: NITROGLYCERIN 600 MCG/3 ML SYRINGE ART-SHEATH ONE (09:26)
[2021-02-12] MEDS ORDERED: LIDOCAINE (1%) 10 MG/1 ML VIAL 20 ML MDV ONE (09:58)
[2021-02-12] MEDS ORDERED: HEPARIN/NS 5000 UNIT/500ML 500 ML IR ONE (10:07)
[2021-02-12] MEDS ORDERED: traMADol 50 MG TAB PO PRN (10:29)
--- NOTE | 2021-02-12 10:33 | Event Note ---
Date: 02/12/21 Patient underwent cardiac catheterization with angiography of the left and right coronary arteries. No complications. Total contrast used was 95 cc. We found a 20% narrowing of the mid LAD, otherwise angiographically normal coronary arteries. Recommend medical therapy for nonischemic cardiomyopathy, and risk factor modification. Patient will be placed on normal saline hydration at 75 cc an hour for 6 hours, then stable for discharge today on medical therapy. Outpatient cardiac follow-up 1 week.
--- NOTE | 2021-02-12 10:58 | Progress Note ---
Assessment and Plan (Principal Problem) Acute exacerbation of CHF Pulmonary Edema Acute Renal Failure on CKD Hypertension Diabetes Mellitus Plan: stable Cr, good UOP In 04/2017 serum creatinine was 1.7 and 1.8 renal US -ve for obstruction nioted to have proteinuria, likely 2/2 DM Avoid nephrotoxic agents Renally dose medications Monitor I/O's daily Obtain daily weights Continue to monitor can be discharged from renal standpoint, to be followed as an outpatient Subjective Date of service: 02/12/21 Principal diagnosis: renal failure Interval history: tolerated heart cath this AM Objective - Vital Signs Vital signs: Vital Signs - 12hr 02/11/21 02/12/21 02/12/21 23:32 04:49 05:52 Temperature 97.6 F 97.9 F Pulse Rate 87 89 89 Respiratory 20 20 Rate Blood Pressure 110/51 96/55 96/55 O2 Sat by Pulse 97 100 Oximetry - General Appearance General appearance: well-developed, well-nourished, appears stated age EENT: ATNC, PERRL, mucous membranes moist Neck: no JVD, no carotid bruit Respiratory: Present: Clear to Ascultation. Absent: Rales, Ronchi Cardiology: regular, S1S2 Gastrointestinal: normoactive bowel sounds Integumentary: no rash, warm and dry Neurologic: no focal deficit, no asterixis, alert and oriented x3 Musculoskeletal: other (trace pitting edema in BLE) Psychiatric: cooperative - Lab 02/12/21 04:12 02/12/21 04:12 Most recent lab results Calcium 7.8 mg/dL (8.4-10.2) L 02/12/21 04:12 Phosphorus 4.30 mg/dL (2.5-4.5) 02/11/21 05:51 Urine Creatinine 87.0 mg/dL (0.1-20.0) H 02/10/21 18:00 Urine Creatinine 87.1 mg/dL (0.1-20.0) H 02/10/21 18:00 Urine Sodium 61 mmol/L 02/10/21 18:00 Urine Total Protein 809 mg/dL (5-11.8) H 02/10/21 18:00 Urine Total Protein 811 mg/dL (5-11.8) H 02/10/21 18:00 Medications & Allergies - Medications Allergies/Adverse Reactions: Allergies tree and shrub pollen Allergy (Intermediate, Verified 02/08/21 21:03) Unknown ITCHY NOSE, EYES, AND EARS Home Medications: Home Medications Medication Instructions Recorded Confirmed Last Taken Type AtorvaSTATin 20 mg PO QHS #30 tablet 04/28/17 02/09/21 06/12/17 Rx Furosemide [Furosemide ORAL LIQ] 40 mg PO QDAY #30 ml 04/28/17 02/09/21 06/12/17 Rx Insulin NPH/Regular [NovoLIN 70/30] 8 unit SQ BID #1 vial 04/28/17 02/09/21 06/14/17 22:00 Rx 8 UNITS Isosorbide Dinitrate [Isordil] 20 mg PO Q8HR #90 tablet 04/28/17 02/09/21 06/12/17 Rx Potassium Chloride 20 meq PO QDAY #30 packet 04/28/17 02/09/21 Unknown Rx amLODIPine 10 mg PO QDAY #30 tablet 04/28/17 02/09/21 06/12/17 Rx carvediloL [Coreg] 3.125 mg PO BID #60 tablet 04/28/17 02/09/21 06/15/17 10:30 Rx hydrALAZINE [Apresoline TAB] 50 mg PO Q8HR #90 tablet 04/28/17 02/09/21 06/12/17 Rx HYDROcodone/APAP 5-325 [[place] 1 each PO Q4HR PRN #35 tablet 06/15/17 02/09/21 Unknown Rx 5-325 mg TAB] traMADoL [Ultram] 50 mg PO Q4HR PRN 06/15/17 02/09/21 06/13/17 History Ibuprofen [Motrin] 600 mg PO Q8H PRN #30 tablet 07/27/17 02/09/21 Unknown Rx Cyclobenzaprine HCl [Flexeril 5 MG 5 mg PO QHS #10 tab 01/13/19 02/09/21 Unknown Rx TAB] Active Medications: Generic Name Dose Route Start Last Admin Trade Name Freq PRN Reason Stop Dose Admin Acetaminophen 650 mg 02/08/21 04:50 Acetaminophen 325 Mg Tab PO Q4H PRN Pain MILD(1-3)/Fever >100.5/HAWTHORNE Hydrocodone Bitart/Acetaminophen 1 each 02/08/21 12:00 Hydrocodone/Acetaminophen 5-325 Mg Tab PO Q4H PRN Pain, Moderate (4-6) Aspirin 325 mg 02/08/21 12:00 02/12/21 07:56 Aspirin 325 Mg Tab PO 325 mg QDAY LUTHER Administration Atorvastatin Calcium 40 mg 02/08/21 22:00 02/11/21 21:56 Atorvastatin 40 Mg Tab PO 40 mg QHS LUTHER Administration Carvedilol 6.25 mg 02/10/21 10:00 02/11/21 21:56 Carvedilol 6.25 Mg Tab PO 6.25 mg BID LUTHER Administration Cyclobenzaprine HCl 5 mg 02/08/21 22:00 02/11/21 21:56 Cyclobenzaprine 10 Mg Tab PO 5 mg QHS LUTHER Administration Dextrose 0 ml 02/08/21 04:50 Dextrose 50% In Water (25gm) 50 Ml Syringe IV Q30MIN PRN Hypoglycemia Protocol Heparin Sodium (Porcine) 5,000 unit 02/08/21 06:00 02/12/21 05:53 Heparin 5,000 Unit/1 Ml Vial SUB-Q 5,000 unit Q8HR LUTHER Administration Hydralazine HCl 25 mg 02/08/21 14:00 02/12/21 05:52 Hydralazine 25 Mg Tab PO Not Given Q8HR LUTHER Sodium Chloride 1,000 mls @ 75 mls/hr 02/11/21 09:30 02/11/21 14:23 Nacl 0.9% 1000 Ml IV 02/12/21 21:29 50 mls/hr DIRECT LUTHER Administration Insulin Human Isoph/Insulin Regular 8 unit 02/08/21 13:00 02/11/21 21:57 Insulin Nph/Regular 70/30 Inj SUB-Q 8 unit BID LUTHER Administration Insulin Human Lispro 0 unit 02/08/21 07:30 02/12/21 08:18 Insulin Lispro 100 Unit/Ml SUB-Q Not Given ACHS LUTHER Protocol Magnesium Hydroxide 30 ml 02/08/21 04:50 Magnesium Hydroxide (Mom) Oral Liqd Udc PO Q4H PRN Constipation Morphine Sulfate 2 mg 02/08/21 04:50 Morphine 2 Mg/1 Ml Inj IV Q4H PRN Pain, Moderate (4-6) Ondansetron HCl 4 mg 02/08/21 04:50 Ondansetron 4 Mg/2 Ml Inj IV Q8H PRN Nausea And Vomiting Sodium Chloride 10 ml 02/08/21 10:00 02/11/21 21:59 Sodium Chloride 0.9% 10 Ml Flush Syringe IV 10 ml BID LUTHER Administration Sodium Chloride 10 ml 02/08/21 04:50 02/10/21 06:39 Sodium Chloride 0.9% 10 Ml Flush Syringe IV 10 ml PRN PRN Administration LINE FLUSH Tramadol HCl 50 mg 02/12/21 10:29 Tramadol 50 Mg Tab PO Q4H PRN Pain, Mild (1-3)
[2021-02-12] MEDS: carvediloL 6.25 MG TAB PO SCH (11:02)
--- NOTE | 2021-02-12 11:09 | Cardiac Catherization Report ---
DATE OF SERVICE: 02/12/2021 CARDIAC CATHETERIZATION REPORT REASON FOR PROCEDURE: The patient is a 75-year-old woman with recurrent congestive heart failure and the finding of moderate severity systolic left ventricular failure. A previous thallium stress test was negative. Due to recurrent heart failure and systolic left ventricular dysfunction, she was recommended for cardiac catheterization for definitive rule out of coronary artery disease as an etiology of her left ventricular failure. The patient has chronic kidney disease with a baseline creatinine of 1.7-1.8. Due to the high risk of contrast nephropathy, we had extensive conversations with the patient regarding this risk, her intravenous diuretics were discontinued and she was hydrated with normal saline over a 24-hour period. Creatinine on this morning at the time of the procedure was 1.7. The plan was for limited angiography of the coronary arteries using iso-osmolar contrast. PROCEDURE: 1. Left heart catheterization. 2. Selective left and right coronary angiography. 3. Sedation time start 922, end 1011. DESCRIPTION OF PROCEDURE: The patient was prepped and draped in a sterile fashion. After informed consent, I was present for the entire procedure and supervised the moderate sedation protocol. The right radial cath site was prepped and draped after a negative Solo's test. The right radial artery was entered using the Seldinger technique followed by placement of a 6-Portuguese hydrophilic sheath. Routine radial cocktail was administered via the sheath. We successfully performed left coronary angiography using a #3.5 left Kathryn. Due to its anterior takeoff and the presence of tortuosity in the neck vessels, we were unable to complete angiography of the right coronary artery via the radial approach, multiple catheters were used including a Kathryn, multipurpose, right Amplatz and left Amplatz. After multiple attempts, we were concerned about continuing increasing contrast load, and decided to complete the catheterization procedure via the right femoral approach. The right femoral artery was then entered using the Seldinger technique followed by placement of a 6-Portuguese sheath. The right coronary angiography was then completed successfully using a #1 left Amplatz catheter. The catheters were then removed, sheaths were removed. Right femoral hemostasis was achieved using an Angio-Seal device, and a TR band was used for the right radial catheter site. The patient tolerated the procedure well and there were no complications. She was returned to the postprocedure unit in stable condition. FINDINGS: Hemodynamics: Ascending aortic pressure was 171/82. CORONARY ANGIOGRAPHY: The left main coronary artery was angiographically normal. The left anterior descending artery contained mild atherosclerosis of its mid segment, with up to 20% narrowing. Otherwise, the LAD and diagonal branches were free of significant disease. A large ramus intermedius artery was angiographically normal. The circumflex artery and its obtuse marginal branches were angiographically normal. The right coronary artery was dominant. 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 We ultimately successfully cannulated this vessel from the right femoral approach using a #1 left Amplatz catheter. The vessel had mild ostial narrowing, but otherwise free of significant disease. Total contrast used for the procedure was 95 mL of Visipaque. CONCLUSION: 1. Mild atherosclerosis of the mid LAD, with up to 20% luminal stenosis, otherwise, essentially angiographically normal coronary arteries. 2. Total contrast used was 95 mL of Visipaque. RECOMMENDATIONS: Recommend risk factor modification, medical therapy for nonischemic cardiomyopathy, post-procedure IV hydration as tolerated and follow up renal function assessment. TID: [id number] RECEIPT: [id number] HENRRY/RHEA
[2021-02-12] MEDS: INSULIN NPH/REGULAR 70/30 INJ SUB-Q SCH (11:12)
[2021-02-12 14:22] VITALS: BP 167/70
--- NOTE | 2021-02-12 14:38 | Discharge Summary ---
Providers - Providers Date of Admission: 02/08/21 04:38 Date of discharge: 02/12/21 Attending physician: SRINIVASA GAMBOA 02/08/21 04:50 Consult to Dietitian/Nutrition [CONS] Routine Physician Instructions: Reason For Exam: Reason for Consult: Diet education Consult to Physician [CONS] Routine Comment: Consulting Provider: SIMÓN SHAFFER Physician Instructions: Reason For Exam: CHF Exac. 02/10/21 12:28 Consult to Physician [CONS] Routine Comment: Consulting Provider: HALLEY STAFFORD Physician Instructions: Reason For Exam: KAE 02/12/21 10:29 Consult to Cardiac Rehabilitation [CONS] Routine Reason For Exam: Cardiac Rehab Evaluation Hospitalization Condition: Stable Hospital course: -- Acute exacerbation of CHF /nonischemic cardiomyopathy Patient admitted and placed on diuretics. Cardiology note reviewed Status post [facility] this morning Cleared for discharge [facility] findings reviewed Mild coronary artery disease with 20% narrowing of mid LAD, otherwise normal coronaries Medical management 2d echocardiogram showed EF of 35 - 40 %% - Acute hypoxic respiratory failure Secondary to CHF exacerbation. She was initially on BiPAP. Resolved Patient is on room air with O2 saturation greater than 97% -- HTN (hypertension), fair Blood pressure initially elevated. Possibly secondary to noncompliance. -- T2DM (type 2 diabetes mellitus) Continue home medications -- Elevated troponin/NSTEMI type II Possibly secondary to troponin leak and kidney disease. Patient denied any chest pain. Nonischemic cardiomyopathy per review of cardiology note -- Acute kidney injury superimposed on chronic kidney disease Creatinine was 0.8 about 4 years ago. Now 1.8 Nephrology note reviewed and cleared for discharge Brief history: 65-year-old -[place] female with known history of hypertension, coronary artery disease with stent placement in the past, CHF, diabetes mellitus with left below-knee amputation presents to the emergency room via EMS for evaluation of respiratory distress. By EMS oxygen saturation was about 73% on room air initially and blood pressure was about 240/150 mmHg. Work-up in the emergency room showed BNP of 2035, Cr 1.8, and troponin of 0.050> 0.078, abnormal lipid profile Chest x-ray was suspicious for bilateral pulmonary edema. Patient was admitted with CHF exacerbation and hypoxic respiratory failure requiring BiPAP on admission Daily clinical course: 02/09/21: Patient admitted with CHF protocol. Patient remains on 4 L O2, continue IV diuresis. Follow cardiology recommendation. Monitor daily weight ins and outs. Get medical records from the [facility]. 02/10: Continue medical management of systolic heart failure. cardiology Will proceed with a cardiac cath for further ischemic assessment. Follow nephrology recommendation for KAE. 02/11: cr remains 1.9, stop lasix and start low volume iv fluid to prepare for cardiac cath which postponded for tomorrow. follow BMP. Patient remains on 2 to 4 L nasal cannula O2. 02/12 patient is alert and oriented and not in any distress and she offers no specific complaints. She denies any chest pain or shortness of breath. Status post left heart cardiac catheterization. Findings reviewed. She is medically stable for discharge. Cardiology and nephrology notes reviewed Disposition: - TO HOME OR SELFCARE Final Discharge Diagnosis (Prints w/discharge instructions): Nonischemic cardiomyopathy Time spent for discharge: 38 minutes Core Measure Documentation - Palliative Care Palliative Care/ Comfort Measures: Not Applicable - Core Measures Any of the following diagnoses?: heart failure - Heart Failure Discharge Requirements MAXIMILIANO/ARB for LVSD if EF <40%: No Reason for no MAXIMILIANO/ARB: Renal impairment Beta sakina at discharge: Yes Exam - Constitutional Vitals: Temp Pulse Resp BP Pulse Ox 97.9 F 83 20 167/70 100 02/12/21 04:49 02/12/21 14:22 02/12/21 04:49 02/12/21 14:22 02/12/21 04:49 General appearance: Present: no acute distress, well-nourished - EENT Eyes: Present: PERRL, EOM intact ENT: hearing intact, clear oral mucosa - Neck Neck: Present: supple, normal ROM - Respiratory Respiratory effort: normal Respiratory: bilateral: CTA - Cardiovascular Rhythm: regular Heart Sounds: Present: S1 & S2 - Extremities Extremities: No edema - Abdominal General gastrointestinal: Present: soft, non-tender - Rectal Rectal Exam: deferred - Integumentary Integumentary: Present: clear - Musculoskeletal Musculoskeletal: strength equal bilaterally - Neurologic Neurologic: moves all extremities Plan Activity: advance as tolerated Weight Bearing Status: Weight Bear as Tolerated Diet: regular, low fat, low cholesterol, low salt, diabetic Special Instructions: restrict fluid intake to (1500 mL/day) Follow up with: PRIMARY CAREMD [Referring] - 3-5 Days HUBER BARRETT MD [Staff Physician] - 14 Days PAIGE SANCHEZ MD [Staff Physician] - 14 Days Prescriptions: hydrALAZINE [Apresoline TAB] 50 mg PO Q8HR #90 tablet Aspirin 325 mg PO QDAY #30 tablet carvediloL [Coreg] 6.25 mg PO BID #60 tablet AtorvaSTATin [Lipitor] 40 mg PO QHS #30 tablet Insulin NPH/Regular [NovoLIN 70/30] 8 unit SQ BID #1 vial
== END 2021-02-12 17:20 | disposition home or self-care (01) | DRG 280 ==
LOC: ED 03:12 → 4A 04:38
PROVIDERS: ADMIT Internal Medicine Geriatric Medicine; ATTEND Internal Medicine
PROC: 5A09357 Assistance with Respiratory Ventilation, Less than 24 Consecutive Hours, Continuous Positive Airway Pressure (ICD-10-PCS; 2021-02-08)
PROC: 4A023N7 Measurement of Cardiac Sampling and Pressure, Left Heart, Percutaneous Approach (ICD-10-PCS; principal; 2021-02-12)
PROC: B211YZZ Fluoroscopy of Multiple Coronary Arteries using Other Contrast (ICD-10-PCS; 2021-02-12)
DX: I13.0 Hypertensive heart and chronic kidney disease with heart failure and stage 1 through stage 4 chronic kidney disease, or unspecified chronic kidney disease (principal); I21.A1 Myocardial infarction type 2; I50.23 Acute on chronic systolic (congestive) heart failure; J96.01 Acute respiratory failure with hypoxia; N17.9 Acute kidney failure, unspecified; I16.1 Hypertensive emergency; I42.8 Other cardiomyopathies; I25.10 Atherosclerotic heart disease of native coronary artery without angina pectoris; N18.9 Chronic kidney disease, unspecified; E11.22 Type 2 diabetes mellitus with diabetic chronic kidney disease; E78.5 Hyperlipidemia, unspecified; E11.51 Type 2 diabetes mellitus with diabetic peripheral angiopathy without gangrene; E66.9 Obesity, unspecified; E11.65 Type 2 diabetes mellitus with hyperglycemia; G43.909 Migraine, unspecified, not intractable, without status migrainosus; Z89.512 Acquired absence of left leg below knee; Z95.5 Presence of coronary angioplasty implant and graft; Z79.899 Other long term (current) drug therapy; Z68.36 Body mass index [BMI] 36.0-36.9, adult
CPT/HCPCS: 36415; 71045; 76770; 80048; 80061; 82570; 82962; 83036; 83880; 84100; 84156; 84300; 84484; 85025; 85610; 85730; 89050; 93005; 93306; 93454; 96372; G0378; A9270-GY; C1760; C1769; C1894; J1644; J1815; J1940; J2250; J3010; J7030; Q9967

== ENCOUNTER 2021-02-18 01:20 | Emergency (ER) | payer MEDICARE ==
--- NOTE | 2021-02-18 01:30 | Emergency Department Report ---
ED CPR HPI - General Chief Complaint: Cardiac Arrest/CPR Stated Complaint: CARDIAC ARREST Time Seen by Provider: 02/18/21 01:20 Source: EMS Mode of arrival: Stretcher Limitations: Other - History of Present Illness Initial Comments: Patient is a 75-year-old female that presents with EMS for cardiac arrest. EMS states that the family was done bystander CPR for 20 minutes. EMS states they have been working the patient for approximately 15 minutes. Patient has received multiple medication. Patient intubated with a Tono tube. Patient has not had any signs of life per EMS. Patient seemed to have a prolonged downtime. MD Complaint: found unresponsive -: unknown Place: home Bystander CPR Performed: Yes AED Applied by Bystander/[employer] Professor: No Shock Advised: No Initial Findings in the Field: unresponsive, no respirations, no pulse ROSC in the Field: No Associated Injuries: No Treatments Prior to Arrival: intubation, BMV, other airway device, chest compressions, epinephrine mgs # - Related Data Home Medications Medication Instructions Recorded Confirmed Last Taken traMADoL [Ultram 50 MG tab] 50 mg PO Q4HR PRN 06/15/17 02/09/21 06/13/17 Previous Rx's Medication Instructions Recorded Last Taken Type Furosemide [Furosemide ORAL LIQ] 40 mg PO QDAY #30 ml 04/28/17 06/12/17 Rx Isosorbide Dinitrate [Isordil] 20 mg PO Q8HR #90 tablet 04/28/17 06/12/17 Rx Potassium Chloride 20 meq PO QDAY #30 packet 04/28/17 Unknown Rx hydrALAZINE [Apresoline TAB] 50 mg PO Q8HR #90 tablet 04/28/17 06/12/17 Rx Cyclobenzaprine HCl [Flexeril 5 MG 5 mg PO QHS #10 tab 01/13/19 Unknown Rx TAB] Aspirin 325 mg PO QDAY #30 tablet 02/12/21 Unknown Rx AtorvaSTATin [Lipitor] 40 mg PO QHS #30 tablet 02/12/21 Unknown Rx Cyclobenzaprine [Flexeril 10 MG 5 mg PO QHS tablet 02/12/21 Unknown Rx TAB] Insulin NPH/Regular [NovoLIN 70/30] 8 unit SQ BID #1 vial 02/12/21 Unknown Rx Insulin NPH/Regular [NovoLIN 70/30] 8 unit SUB-Q BID units 02/12/21 Unknown Rx carvediloL [Coreg] 6.25 mg PO BID #60 tablet 02/12/21 Unknown Rx hydrALAZINE [Apresoline TAB] 50 mg PO Q8HR #90 tablet 02/12/21 Unknown Rx Allergies Allergy/AdvReac Type Severity Reaction Status Date / Time tree and shrub pollen Allergy Intermediate Unknown Verified 02/08/21 21:03 ED Review of Systems ROS: Stated complaint: CARDIAC ARREST Other details as noted in HPI Comment: Unobtainable due to pts medical conditions ED Past Medical Hx - Past Medical History Previous Medical History?: Yes Hx Hypertension: Yes Hx Congestive Heart Failure: Yes Hx Diabetes: Yes Hx Headaches / Migraines: Yes Hx HIV: No Additional medical history: Left middle finger bacterial infection - Surgical History Past Surgical History?: Yes Hx Coronary Stent: Yes (2005) - Family History Family history: no significant - Social History Smoking Status: Former Smoker Substance Use Type: None - Medications Home Medications: Home Medications Medication Instructions Recorded Confirmed Last Taken Type Furosemide [Furosemide ORAL LIQ] 40 mg PO QDAY #30 ml 04/28/17 02/09/21 06/12/17 Rx Isosorbide Dinitrate [Isordil] 20 mg PO Q8HR #90 tablet 04/28/17 02/09/21 06/12/17 Rx Potassium Chloride 20 meq PO QDAY #30 packet 04/28/17 02/09/21 Unknown Rx hydrALAZINE [Apresoline TAB] 50 mg PO Q8HR #90 tablet 04/28/17 02/09/21 06/12/17 Rx traMADoL [Ultram 50 MG tab] 50 mg PO Q4HR PRN 06/15/17 02/09/21 06/13/17 History Cyclobenzaprine HCl [Flexeril 5 MG 5 mg PO QHS #10 tab 01/13/19 02/09/21 Unknown Rx TAB] Aspirin 325 mg PO QDAY #30 tablet 02/12/21 Unknown Rx AtorvaSTATin [Lipitor] 40 mg PO QHS #30 tablet 02/12/21 Unknown Rx Cyclobenzaprine [Flexeril 10 MG 5 mg PO QHS tablet 02/12/21 Unknown Rx TAB] Insulin NPH/Regular [NovoLIN 70/30] 8 unit SQ BID #1 vial 02/12/21 Unknown Rx Insulin NPH/Regular [NovoLIN 70/30] 8 unit SUB-Q BID units 02/12/21 Unknown Rx carvediloL [Coreg] 6.25 mg PO BID #60 tablet 02/12/21 Unknown Rx hydrALAZINE [Apresoline TAB] 50 mg PO Q8HR #90 tablet 02/12/21 Unknown Rx ED Physical Exam - General Limitations: Other General appearance: other - Head Head exam: Present: atraumatic, normocephalic - Eye Eye exam: Present: other (Pupils fixed and dilated) - ENT ENT exam: Present: other (Tono tube in place.) - Respiratory Respiratory exam: Present: decreased breath sounds, other (Tube placement verified with bilateral breath sounds) - Cardiovascular Cardiovascular Exam: Present: other (No pulse noted.) - GI/Abdominal GI/Abdominal exam: Present: soft - Rectal Rectal exam: Present: deferred - Extremities Exam Extremities exam: Present: other (Right lower extremity IO noted) - Skin Skin exam: Present: warm, dry, normal color ED Course - Reevaluation(s) Reevaluation #1: Patient arrived via EMS. Radio report received from EMS prior to arrival. [id number] report received once EMS arrived. Patient was transferred to our [facility]. CPR continued. 02/18/21 01:19 Resuscitation efforts were terminated due to no signs of life. Patient had no pulse. Patient asystole on the monitor. No cardiac motion noted. Code ran in accordance with ACLS guidelines. Family support will be given once the family arrives. 02/18/21 01:23 Reevaluation #2: Family meeting done. Family support given. 02/18/21 01:46 ED Medical Decision Making - Medical Decision Making Patient is a 75-year-old female who presents with EMS for cardiac arrest. Radio report was received by EMS prior to their arrival. Patient brought in by EMS. EMS states that the patient had a prolonged downtime. Bystander CPR being performed for 20 minutes. CPR was assumed by EMS. EMS gave 2 rounds of epi. EMS intubated the patient. No signs of life with EMS. Patient was transferred to our [facility] [place]. CPR continued. Patient given epi and bicarb. Patient had no signs of life and the resuscitation efforts were terminated. Critical care time documented due to the multiple reassessments, prolonged time at the bedside. - Differential Diagnosis Cardiac arrest, PE, DC Critical Care Time: Yes Critical care time in (mins) excluding proc time.: 35 Critical care attestation.: If time is entered above; I have spent that time in minutes in the direct care of this critically ill patient, excluding procedure time. Critical Care Time: 35 minutes ED Disposition Clinical Impression: Cardiac arrest Disposition: DC-20 Is pt being admited?: No Does the pt Need Aspirin: No Condition: Undetermined Referrals: PRIMARY CARE, [Primary Care Provider] - 3-5 Days Time of Disposition: 02:00
[2021-02-18] MEDS ORDERED: EPINEPHrine 1 MG/10 ML SYRINGE ONE (04:38)
[2021-02-18] MEDS ORDERED: SODIUM BICARB 8.4% 50 MEQ/50 ML SYRINGE IV ONE (04:38)
== END 2021-02-18 04:20 ==
LOC: ED 01:20
DX: I46.9 Cardiac arrest, cause unspecified (principal); I11.0 Hypertensive heart disease with heart failure; I50.9 Heart failure, unspecified; E11.9 Type 2 diabetes mellitus without complications; G43.909 Migraine, unspecified, not intractable, without status migrainosus; Z98.890 Other specified postprocedural states; Z87.891 Personal history of nicotine dependence; Z79.899 Other long term (current) drug therapy; Z91.048 Other nonmedicinal substance allergy status
CPT/HCPCS: 92950; 99285; J0171